=== PATIENT | female | born 1955 | race Caucasian/White ===

== ENCOUNTER 2016-05-01 09:48 | Inpatient (IN) | payer MEDICARE, MEDICAID ==
[~2016-05-01 09:48] MED LIST: BuPROPion 150 MG SR TAB PO SCH
--- NOTE | 2016-05-01 10:07 | EDPRACDOC ---
- General Information Information Source: Patient - History of Present Illness Onset: 3-4 DAYS HPI: PT REPORTS WORSENING SOBR, COUGH PROD OF CLEAR-YELLOW SPUTUM, WHEEZING, JOSEPH, SAW DR MENDEZ ON FRIDAY, WAS GIVEN A "SHOT" AND STARTED ON ZITHROMAX AND PREDNISONE, PT STATES NO IMPROVEMENT, USING NEBS AND OXYGEN AT HOME WITHOUT RELIEF. PT HAS HX OF COPD, IS ON CONTINUOUS OXYGEN, "TRYING TO QUIT" SMOKING. Shortness of Breath: Severe Relevant History: Reports: COPD, Heart Failure (CHF) Cough: Reports: Productive, Clear, Yellow Rhinorrhea: Reports: Clear Ear Symptoms: Reports: None SOB Worsens with: Reports: Exertion SOB Improves with: Reports: Nothing Recently treated infections:: Reports: URI Associated Signs and symptoms: Reports: Cough, Nasal Symptoms. Denies: Earache , Fever, Headache, Sore Throat, Nausea, Vomiting, Diarrhea, Myalgia, Rash, Pain with head movement, AMS <Troy Arrieta - Last Filed: 05/01/16 11:31> - History of Present Illness HPI: MD NOTE SEEN AND EXAMINED; FAILED OUTPT TREATMENT; HERE WITH SHOB AND WHEEZING; LABS AND XRAY REVIEWED. ABX STARTED; SOME IMPROVEMENT AFTER NEB; PT DOES WEAR OXYGEN AT HOME <Bryan Beverly - Last Filed: 05/01/16 11:51> - General Information Chief Complaint: Dyspnea/Resp distress Stated Complaint: RESP DISTRESS Time Seen by Provider: 05/01/16 10:00 Home Medications: Home Medications Albuterol Sulfate [Ventolin Hfa] 1 - 2 puff INH Q4H PRN 10/27/13 Roflumilast [Daliresp] 500 mcg PO DAILY 10/27/13 Ropinirole HCl [Requip] 1 mg PO HS 03/16/14 Lisinopril 5 mg PO DAILY #90 tablet 03/21/14 Levothyroxine [Synthroid, Levoxyl] 75 mcg PO DAILY 05/17/15 Tramadol HCl [Ultram] 50 mg PO Q8H PRN 09/24/15 Alprazolam [Xanax] 0.5 mg PO TID 11/21/15 Atorvastatin Calcium [Lipitor] 40 mg PO HS #30 tablet 02/18/16 Carvedilol [Coreg] 3.125 mg PO BID #60 tablet 11/20/16 Furosemide [Lasix] 20 mg PO DAILY 04/05/16 Guaifenesin [Mucinex] 600 mg PO Q12H PRN 04/05/16 Montelukast Sodium [Singulair] 10 mg PO DAILY 04/05/16 Aspirin (Enteric Coated) [Ecotrin] 81 mg PO DAILY 05/01/16 Azithromycin 500 mg PO .DAILY X 10D 05/01/16 Budesonide/Formoterol Fumarate [Symbicort 160-4.5 Mcg Inhaler] 2 puff INH BID Omeprazole 20 mg PO DAILY 05/01/16 Prednisone [Deltasone, Orasone] 10 mg PO .SEE COMMENTS 05/01/16 Allergies/Adverse Reactions: Allergies Allergy/AdvReac Type Severity Reaction Status Date / Time levofloxacin [From Levaquin] Allergy Difficulty Verified 04/05/16 12:43 Breathing - Treatment Prior to ED Arrival Reported Medications/Treatment DENTAL DETAIL REPRESENTATIVE Meds/Treatments Given O2 via Cannula Medications DENTAL DETAIL REPRESENTATIVE (Medication/ duoneb enroute Dose/Time) EMS Treatment ALS IV Yes <Troy Arrieta - Last Filed: 05/01/16 11:31> - Treatment Prior to ED Arrival Reported Medications/Treatment DENTAL DETAIL REPRESENTATIVE Meds/Treatments Given O2 via Cannula Medications DENTAL DETAIL REPRESENTATIVE (Medication/ duoneb enroute Dose/Time) EMS Treatment ALS IV Yes <Bryan Beverly - Last Filed: 05/01/16 11:51> ED Past Medical History - History Reviewed Yes Nurses notes reviewed and agree except as marked - Patient Medical History Neurological History: Denies: Cerebrovascular Accident, Seizures, Dementia, Guillian-Eugene Syndrome, Parkinson's, Multiple Sclerosis Cardiac History: Reports: Hypertension, Congestive Heart Failure. Denies: Heart Attack, Cardiac Catheterization, CABG, Pacemaker, Syncope Respiratory History: Reports: Asthma, COPD, Pneumonia (01/2016), Emphysema. Denies: Pulmonary Embolism GI/ History: Reports: Urinary Tract Infection, Gastroesophageal Reflux Musculoskeletal History: Reports: Arthritis Psychological History: Reports: Depression (anxiety), Anxiety. Denies: Bipolar Disorder, Substance Use Disorder Systemic History: Reports: Hyperthyroidism, Hypothyroidism. Denies: Anemia Surgical History: Reports: Cholecystectomy, Other (Colon polyps removed.). Denies: CABG, Angioplasty, Cardiac Catheterization - Family Medical History Reports: Hypertension, Diabetes, Cancer, Cardiac Disorders. Denies: Stroke - Social Medical History Smoking Status: Heavy tobacco smoker (5 or more cigarettes/day or daily pipe/ cigar) Social History: Denies: Substance Use Disorder ETOH: None Substance Abuse: None <Shreyas Arrietason - Last Filed: 05/01/16 11:31> EDM Review of Systems - Review of Systems Constitutional: Weakness. negative: Chills, Fever Eyes: negative: Blurred Vision, Double Vision Ears: negative: Drainage Throat: negative: Pain Nose: Congestion. negative: Discharge Respiratory: Cough, Shortness of Breath, Wheezing Cardiovascular: Chest Pain. negative: Palpitations Gastrointestinal: negative: Diarrhea, Nausea, Pain, Vomiting Genitourinary: negative: Dysuria, Frequency Neurological: negative: Dizziness, Headache, Numbness, Weakness Musculoskeletal: No Symptoms Reported Integumentary: No Symptoms Reported <Shreyas Arrietason - Last Filed: 05/01/16 11:31> - Physical Exam Constitutional: Alert (Awake), No apparent distress Oriented to: Time, Person, Place Last recorded Vital Signs: Last Vital Signs Temp 98.3 F 05/01/16 09:58 Pulse 103 05/01/16 09:58 Resp 22 05/01/16 09:58 BP 161/72 05/01/16 09:58 Pulse Ox 93 05/01/16 09:58 Oxygen Pulse Oxygen Saturation 93 O2 Device Nasal Cannula Oxygen Flow Rate 2 Fraction of Inspired Oxygen ( FIO2) - HEENT Head: Normal ( normocephalic) Eye Exam: Normal (PERRL, EOMI, Sclera white) Oropharynx: Normal (Pharynx:Moist without exudate,Gums-no swelling) Tympanic Membrane: Normal ENT EAC: Normal TMJ: Normal Nose: No Symptoms Reported (septum midline) Neck: Normal (FROM, trachea at midline) - Respiratory/Cardiovascular Respiratory: Accessory Muscle Use, Diminished, Wheezes Cardiovascular: Normal (RRR without murmur, gallop or rub) - GI Auscultation: Normal (NABS) Palpation: Normal (Soft,No rebound or guarding, non distended) Tenderness: Non tender Pichardo's Sign: Negative - Musculoskeletal Back: Normal (Non-Tender) Extremities: Normal (Normal tone, Pulses 2+ No cyanosis or edema, FROM) - Integumentary Skin: Normal, Warm, Dry Lymphatics: Normal (no adenopathy) - Neurologic Memory Impaired: Normal Motor Function: Normal (Normal tone, Pulses 2+ No cyanosis or edema, FROM) Cranial Nerve: Normal (CN II-X11 intact sensation, strength 5/5) Cerebellar: Normal Mood Description: Normal Perception: Normal <Troy Arrieta - Last Filed: 05/01/16 11:31> - Physical Exam Last recorded Vital Signs: Last Vital Signs Temp 97.7 F 05/01/16 11:43 Pulse 98 05/01/16 11:43 Resp 22 05/01/16 11:43 BP 111/59 L 05/01/16 11:43 Pulse Ox 93 05/01/16 11:43 Oxygen Pulse Oxygen Saturation 93 O2 Device Nasal Cannula Oxygen Flow Rate 2 Fraction of Inspired Oxygen ( 2 FIO2) <Bryan Beverly - Last Filed: 05/01/16 11:51> ED SOB MDM - Differential Diagnosis Differential Diagnosis: Asthma, Heart Failure, Pnuemonia, Pneumothorax - Re-evaluation Re-evaluation 1 Re-evaluation Time: 11:32 (STABLE) - Results Result Diagrams: 05/01/16 10:10 05/01/16 10:10 Results: 05/01/16 11:32 Laboratory Results - last 24 hr 05/01/16 05/01/16 05/01/16 10:10 10:10 10:10 WBC 11.2 H RBC 4.58 Hgb 13.1 Hct 40.5 MCV 88 MCH 28.7 MCHC 32.5 L RDW 15.7 H Plt Count 266 MPV 6.4 L Neut % (Auto) 66.4 Lymph % (Auto) 20.1 [place] % (Auto) 12.8 H Eos % (Auto) 0.3 Baso % (Auto) 0.4 Absolute Neuts (auto) 7.39 Absolute Lymphs (auto) 2.24 PT INR APTT Puncture Site pH pCO2 pO2 HCO3 Total CO2 Base Excess FiO2 % Specimen Drawn By Sodium 136 L Potassium 3.6 Chloride 93 L Carbon Dioxide 35 H Anion Gap 12 BUN 18 H Creatinine 0.50 L Estimated GFR (MDRD) > 60 Glucose 84 Calculated Osmolality 263 L Lactic Acid 1.6 Calcium 8.8 Corrected Calcium 8.9 Total Bilirubin 0.4 AST 25 ALT 29 Alkaline Phosphatase 68 Troponin I < 0.01 [id number]-P-[id number] Pept 125 Total Protein 6.8 Albumin 3.9 05/01/16 05/01/16 10:10 10:25 WBC RBC Hgb Hct MCV MCH MCHC RDW Plt Count MPV Neut % (Auto) Lymph % (Auto) [place] % (Auto) Eos % (Auto) Baso % (Auto) Absolute Neuts (auto) Absolute Lymphs (auto) PT 11.6 H INR 1.1 APTT 27.2 Puncture Site Right brachial pH 7.390 pCO2 66.0 H pO2 59.0 L HCO3 40.0 H Total CO2 42.0 H Base Excess 12.1 H FiO2 % 2lpm nc Specimen Drawn By [place] Sodium Potassium Chloride Carbon Dioxide Anion Gap BUN Creatinine Estimated GFR (MDRD) Glucose Calculated Osmolality Lactic Acid Calcium Corrected Calcium Total Bilirubin AST ALT Alkaline Phosphatase Troponin I [id number]-Xahtxiewdmq Pept Total Protein Albumin - EKG EKG #1 EKG Time: 09:59 -: Yes EKG interpreted by me Rate: bpm: 100 [place]: Normal Rhythm: NSR Block: None Hypertrophy: None ST: Nonsp Comparison: 02/10/16 (NO CHANGE) - Diagnostic Imaging CXR Image interpreted by: Radiologist Diagnostic Imaging Comments: CHEST 2 VIEW COMPARISON: 02/13/2016 FINDINGS: Cardiomediastinal silhouette is stable. Hyperinflation and mild interstitial prominence again noted. There is streaky left basilar atelectasis or early infiltrate. No pulmonary edema. Thoracic spine osteopenia. Mild degenerative changes mid thoracic spine. Stable compression deformities mid thoracic spine. IMPRESSION: Again noted hyperinflation and chronic mild interstitial prominence. Streaky left basilar atelectasis or early infiltrate. No pulmonary edema. Stable compression deformities and mild degenerative changes mid thoracic spine. - Additional Information Additional Information: DISCUSSED WITH DR BEVERLY, HE WILL DISCUSS WITH THE HOSPITALIST <Troy Arrieta - Last Filed: 05/01/16 11:31> - Results Result Diagrams: 05/01/16 10:10 05/01/16 10:10 Results: WBC 11.2 xk/uL (3.8-10.8) H 05/01/16 10:10 RBC 4.58 xM/uL (4.20-5.40) 05/01/16 10:10 Hgb 13.1 g/dL (12.0-16.0) 05/01/16 10:10 Hct 40.5 % (36-47) 05/01/16 10:10 MCV 88 fL (81-99) 05/01/16 10:10 MCH 28.7 pg (27-32) 05/01/16 10:10 MCHC 32.5 g/dl (33-36) L 05/01/16 10:10 RDW 15.7 % (11.5-14.5) H 05/01/16 10:10 Plt Count 266 xk/uL (130-400) 05/01/16 10:10 MPV 6.4 fL (7.4-10.4) L 05/01/16 10:10 Neut % (Auto) 66.4 % (45-76) 05/01/16 10:10 Lymph % (Auto) 20.1 % (17-44) 05/01/16 10:10 [place] % (Auto) 12.8 % (3-10) H 05/01/16 10:10 Eos % (Auto) 0.3 % (0-5) 05/01/16 10:10 Baso % (Auto) 0.4 % (0-2) 05/01/16 10:10 Absolute Neuts (auto) 7.39 xk/uL (1.7-8.2) 05/01/16 10:10 Absolute Lymphs (auto) 2.24 xk/uL (0.65-4.75) 05/01/16 10:10 PT 11.6 SEC (9.2-11.2) H 05/01/16 10:10 INR 1.1 05/01/16 10:10 APTT 27.2 SEC (22-35) 05/01/16 10:10 Puncture Site Right brachial 05/01/16 10:25 pH 7.390 pH UNITS (7.35-7.45) 05/01/16 10:25 pCO2 66.0 mmHg (35-45) H 05/01/16 10:25 pO2 59.0 mmHg (80-100) L 05/01/16 10:25 HCO3 40.0 MMOL/L (22-26) H 05/01/16 10:25 Total CO2 42.0 MMOL/L (23-27) H 05/01/16 10:25 Base Excess 12.1 (+/- 2) H 05/01/16 10:25 FiO2 % 2lpm nc 05/01/16 10:25 Specimen Drawn By [place] 05/01/16 10:25 Sodium 136 mEq/L (137-146) L 05/01/16 10:10 Potassium 3.6 mEq/L (3.5-5.1) 05/01/16 10:10 Chloride 93 mEq/L (98-107) L 05/01/16 10:10 Carbon Dioxide 35 mMOL/L (22-33) H 05/01/16 10:10 Anion Gap 12 mEq/L (8-16) 05/01/16 10:10 BUN 18 MG/DL (7-17) H 05/01/16 10:10 Creatinine 0.50 MG/DL (0.52-1.04) L 05/01/16 10:10 Estimated GFR (MDRD) > 60 mL/min (>=60) 05/01/16 10:10 Glucose 84 mg/dL (70-99) 05/01/16 10:10 Calculated Osmolality 263 MOs/Kg (270-290) L 05/01/16 10:10 Lactic Acid 1.6 mEq/L (0.7-2.1) 05/01/16 10:10 Calcium 8.8 MG/DL (8.4-10.2) 05/01/16 10:10 Corrected Calcium 8.9 MG/DL (8.4-10.2) 05/01/16 10:10 Total Bilirubin 0.4 MG/DL (0.2-1.3) 05/01/16 10:10 AST 25 IU/L (14-36) 05/01/16 10:10 ALT 29 IU/L (9-52) 05/01/16 10:10 Alkaline Phosphatase 68 IU/L (38-126) 05/01/16 10:10 Troponin I < 0.01 ng/mL (<.04) 05/01/16 10:10 Qjb-Q-Xsufkjtkpya Pept 125 pg/mL (0-900) 05/01/16 10:10 Total Protein 6.8 G/DL (6.3-8.2) 05/01/16 10:10 Albumin 3.9 G/DL (3.5-5.0) 05/01/16 10:10 Urine Color Pale yellow 05/01/16 11:10 Urine Clarity Clear 05/01/16 11:10 Urine pH 7.0 (5.0-8.0) 05/01/16 11:10 Ur Specific [place] 1.005 (1.003-1.035) 05/01/16 11:10 Urine Protein Neg (NEG/TRACE) 05/01/16 11:10 Urine Glucose (UA) Neg (NEGATIVE) 05/01/16 11:10 Urine Ketones Neg (NEGATIVE) 05/01/16 11:10 Urine Occult Blood Neg (NEG/TRACE) 05/01/16 11:10 Urine Nitrite Neg (NEGATIVE) 05/01/16 11:10 Urine Bilirubin Neg (NEGATIVE) 05/01/16 11:10 Urine Urobilinogen <2.0 MG/DL (0-1) 05/01/16 11:10 Ur Leukocyte Esterase Neg (NEGATIVE) 05/01/16 11:10 Urine RBC 0-2 (0-5) 05/01/16 11:10 Urine WBC 0-2 (0-5) 05/01/16 11:10 Ur Epithelial Cells Occ 05/01/16 11:10 Urine Mucus Occ (NEG/OCC) 05/01/16 11:10 Lab Results 05/01/16 05/01/16 05/01/16 11:10 10:25 10:10 WBC RBC Hgb Hct MCV MCH MCHC RDW Plt Count MPV Neut % (Auto) Lymph % (Auto) [place] % (Auto) Eos % (Auto) Baso % (Auto) Absolute Neuts (auto) Absolute Lymphs (auto) PT 11.6 H INR 1.1 APTT 27.2 Puncture Site Right brachial pH 7.390 pCO2 66.0 H pO2 59.0 L HCO3 40.0 H Total CO2 42.0 H Base Excess 12.1 H FiO2 % 2lpm nc Specimen Drawn By [place] Sodium Potassium Chloride Carbon Dioxide Anion Gap BUN Creatinine Estimated GFR (MDRD) Glucose Calculated Osmolality Lactic Acid Calcium Corrected Calcium Total Bilirubin AST ALT Alkaline Phosphatase Troponin I Jul-L-Ohjjifudopq Pept Total Protein Albumin Urine Color Pale yellow Urine Clarity Clear Urine pH 7.0 Ur Specific [place] 1.005 Urine Protein Neg Urine Glucose (UA) Neg Urine Ketones Neg Urine Occult Blood Neg Urine Nitrite Neg Urine Bilirubin Neg Urine Urobilinogen <2.0 Ur Leukocyte Esterase Neg Urine RBC 0-2 Urine WBC 0-2 Ur Epithelial Cells Occ Urine Mucus Occ 05/01/16 05/01/16 05/01/16 10:10 10:10 10:10 WBC 11.2 H RBC 4.58 Hgb 13.1 Hct 40.5 MCV 88 MCH 28.7 MCHC 32.5 L RDW 15.7 H Plt Count 266 MPV 6.4 L Neut % (Auto) 66.4 Lymph % (Auto) 20.1 [place] % (Auto) 12.8 H Eos % (Auto) 0.3 Baso % (Auto) 0.4 Absolute Neuts (auto) 7.39 Absolute Lymphs (auto) 2.24 PT INR APTT Puncture Site pH pCO2 pO2 HCO3 Total CO2 Base Excess FiO2 % Specimen Drawn By Sodium 136 L Potassium 3.6 Chloride 93 L Carbon Dioxide 35 H Anion Gap 12 BUN 18 H Creatinine 0.50 L Estimated GFR (MDRD) > 60 Glucose 84 Calculated Osmolality 263 L Lactic Acid 1.6 Calcium 8.8 Corrected Calcium 8.9 Total Bilirubin 0.4 AST 25 ALT 29 Alkaline Phosphatase 68 Troponin I < 0.01 Rsq-A-Heecsyrwhnx Pept 125 Total Protein 6.8 Albumin 3.9 Urine Color Urine Clarity Urine pH Ur Specific [place] Urine Protein Urine Glucose (UA) Urine Ketones Urine Occult Blood Urine Nitrite Urine Bilirubin Urine Urobilinogen Ur Leukocyte Esterase Urine RBC Urine WBC Ur Epithelial Cells Urine Mucus <Bryan Beverly - Last Filed: 05/01/16 11:51> - Departure Disposition: Admit IP To This Hospital Decision to Admit Time: 11:38 Decision to admit date: 05/01/16 Decision to admit: from ED - Physician Consulted Hospitalist Time Called: 11:38 Provider Called: Stewart Jovel Time Seat Covers Trimmer Returned Call: 11:38 (WILL SEE) <Troy Arrieta - Last Filed: 05/01/16 11:31> <Bryan Beverly - Last Filed: 05/01/16 11:51> - Departure Condition: Stable Final Diagnosis: Community acquired pneumonia, Failure of outpatient treatment, Hypoxia Referrals: Canelo Stone Jr, DO [Primary Care Provider] - One Week Prescriptions: No Action Roflumilast [Daliresp] 500 mcg PO DAILY Albuterol Sulfate [Ventolin Hfa] 1 - 2 puff INH Q4H PRN PRN Reason: Shortness Of Breath Ropinirole HCl [Requip] 1 mg PO HS Lisinopril 5 mg PO DAILY #90 tablet Levothyroxine [Synthroid, Levoxyl] 75 mcg PO DAILY Tramadol HCl [Ultram] 50 mg PO Q8H PRN PRN Reason: Pain Alprazolam [Xanax] 0.5 mg PO TID Atorvastatin Calcium [Lipitor] 40 mg PO HS #30 tablet Carvedilol [Coreg] 3.125 mg PO BID #60 tablet Montelukast Sodium [Singulair] 10 mg PO DAILY Guaifenesin [Mucinex] 600 mg PO Q12H PRN PRN Reason: Congestion Furosemide [Lasix] 20 mg PO DAILY Budesonide/Formoterol Fumarate [Symbicort 160-4.5 Mcg Inhaler] 2 puff INH BID Azithromycin 500 mg PO .DAILY X 10D Aspirin (Enteric Coated) [Ecotrin] 81 mg PO DAILY Omeprazole 20 mg PO DAILY Prednisone [Deltasone, Orasone] 10 mg PO .SEE COMMENTS
[2016-05-01] MEDS ORDERED: METHYLPREDNISOLONE 125 MG/2 ML VIAL IV ONE (10:08)
[2016-05-01] MEDS ORDERED: Albuterol/Ipratropium Neb 3 ML NEB NEB ONE (10:09)
[2016-05-01 10:30] LABS: AUTOMATED BASOPHIL 0.4 % (0-2); AUTOMATED EOSINOPHIL 0.3 % (0-5); AUTOMATED LYMPH 20.1 % (17-44); AUTOMATED MONOCYTE 12.8 % (3-10); AUTOMATED NEUTROPHIL 66.4 % (45-76); MPV 6.4 fL (7.4-10.4)
[2016-05-01 10:31] LABS: ALLEN'S TEST PASS; BEb 12.1 (+/- 2)
[2016-05-01 10:32] LABS: ABG Draw Site Right Brachial
[2016-05-01 10:42] LABS: PARTIAL THROMB. TIME 27.2 SEC (22-35); PT-INR 1.1
[2016-05-01 10:52] LABS: BLOOD UREA NITROGEN 18 MG/DL (7-17); CALC CORRECTED 8.9 MG/DL (8.4-10.2); CALCIUM 8.8 MG/DL (8.4-10.2); CALCULATED OSMOLALITY 263 MOs/Kg (270-290); CHLORIDE 93 mEq/L (98-107); GLUCOSE 84 mg/dL (70-99); SODIUM LEVEL 136 mEq/L (137-146); TOTAL PROTEIN 6.8 G/DL (6.3-8.2)
--- NOTE | 2016-05-01 11:18 | DIRPT ---
CLINICAL DATA: Shortness of breath, wheezing, productive cough EXAM: CHEST 2 VIEW COMPARISON: 02/13/2016 FINDINGS: Cardiomediastinal silhouette is stable. Hyperinflation and mild interstitial prominence again noted. There is streaky left basilar atelectasis or early infiltrate. No pulmonary edema. Thoracic spine osteopenia. Mild degenerative changes mid thoracic spine. Stable compression deformities mid thoracic spine. IMPRESSION: Again noted hyperinflation and chronic mild interstitial prominence. Streaky left basilar atelectasis or early infiltrate. No pulmonary edema. Stable compression deformities and mild degenerative changes mid thoracic spine. Electronically Signed By: Shawn Charles M.D. On: 05/01/2016 11:15
[2016-05-01 11:34] LABS: LEUKOCYTES/URINE NEG (NEGATIVE); NITRITE/URINE NEG (NEGATIVE); RBC/URINE 0-2 (0-5); URINE OCCULT BLOOD NEG (NEG/TRACE); WBC/URINE 0-2 (0-5)
[2016-05-01] MEDS ORDERED: PIPERACILLIN AND TAZOBACTAM 3.375 GM in D5W 100 ML IV ONE (11:39)
[2016-05-01] MEDS ORDERED: CEFEPIME HYDROCHLORIDE 1 GM in D5W 100 ML IV ONE (12:00)
[2016-05-01] MEDS ORDERED: ACETAMINOPHEN 325 MG SUPP PR PRN (12:10)
[2016-05-01] MEDS ORDERED: BENZONATATE 100 MG PERLES PO PRN (12:10)
[2016-05-01] MEDS ORDERED: ACETAMINOPHEN 325 MG/TAB TABLET PO PRN (12:10)
[2016-05-01] MEDS ORDERED: BISACODYL 10 MG SUPP PR PRN (12:10)
[2016-05-01] MEDS ORDERED: METOCLOPRAMIDE 10 MG/2 ML VIAL IV PRN (12:10)
[2016-05-01] MEDS ORDERED: OXYCODONE HCL 5 MG TABLET PO PRN (12:10)
[2016-05-01] MEDS ORDERED: TUSSIONEX 5 ML ORAL SYRINGE PO PRN (12:10)
[2016-05-01] MEDS ORDERED: PROMETHAZINE 25 MG/ML VIAL IV PRN (12:10)
[2016-05-01] MEDS ORDERED: SENNA CONCENTRATE TAB PO PRN (12:10)
[2016-05-01] MEDS ORDERED: ZOLPIDEM TARTRATE 5 MG TAB PO PRN (12:10)
[2016-05-01] MEDS ORDERED: Aluminum;Magnesium;Simethicone 30 ML UDC PO PRN (12:10)
--- NOTE | 2016-05-01 12:10 | HISTPHYS ---
- Chief Complaint cough sob - History of Present Illness Patient very pleasant 61-year-old white female patient of Dr. Allison who comes in the emergency room today complaining of cough productive of clear to yellowish sputum market increased shortness breath and failing outpatient antibiotics. Apparently she was seen by Dr. Motley 2 days ago given an injection as well as p.o. Zithromax and prednisone. She indicated that she has had no improvement in her symptoms and actually is getting much more short of breath. Her chest feels very tight and states that normally her temperature is 96.4 but has been running a fever up to 99 F. she also complains of nausea vomiting over the past 3-4 days but is not aware of having choked on her vomitus. She also states that she has quit smoking for the large part approximately 2 months ago using nicotine patch. She indicated that Chantix makes her walk in her sleep. - Medical History Cardiac History: Reports: Hypertension, Congestive Heart Failure. Denies: Heart Attack, Cardiac Catheterization, CABG, Pacemaker, Syncope Respiratory History: Reports: Asthma, COPD, Pneumonia (01/2016), Emphysema. Denies: Pulmonary Embolism GI/ History: Reports: Urinary Tract Infection, Gastroesophageal Reflux Musculoskeletal History: Reports: Arthritis Systemic History: Reports: Hyperthyroidism, Hypothyroidism. Denies: Anemia Neurological History: Denies: Cerebrovascular Accident, Seizures, Dementia, Guillian-Katy Syndrome, Parkinson's, Multiple Sclerosis Psychological History: Reports: Depression (anxiety), Anxiety. Denies: Bipolar Disorder, Substance Use Disorder - Surgical History Reports: Cholecystectomy, Other (Colon polyps removed.). Denies: CABG, Angioplasty, Cardiac Catheterization - Medictions/Allergies Allergies levofloxacin [From Levaquin] Allergy (Verified 04/05/16 12:43) Difficulty Breathing Current Medication List: Reviewed Home Medications Albuterol Sulfate [Ventolin Hfa] 1 - 2 puff INH Q4H PRN 10/27/13 Roflumilast [Daliresp] 500 mcg PO DAILY 10/27/13 Ropinirole HCl [Requip] 1 mg PO HS 03/16/14 Lisinopril 5 mg PO DAILY #90 tablet 03/21/14 Levothyroxine [Synthroid, Levoxyl] 75 mcg PO DAILY 05/17/15 Tramadol HCl [Ultram] 50 mg PO Q8H PRN 09/24/15 Alprazolam [Xanax] 0.5 mg PO TID 11/21/15 Atorvastatin Calcium [Lipitor] 40 mg PO HS #30 tablet 02/18/16 Carvedilol [Coreg] 3.125 mg PO BID #60 tablet 02/18/16 Furosemide [Lasix] 20 mg PO DAILY 04/05/16 Guaifenesin [Mucinex] 600 mg PO Q12H PRN 04/05/16 Montelukast Sodium [Singulair] 10 mg PO DAILY 04/05/16 Aspirin (Enteric Coated) [Ecotrin] 81 mg PO DAILY 05/01/16 Azithromycin 500 mg PO .DAILY X 10D 05/01/16 Budesonide/Formoterol Fumarate [Symbicort 160-4.5 Mcg Inhaler] 2 puff INH BID Omeprazole 20 mg PO DAILY 05/01/16 Prednisone [Deltasone, Orasone] 10 mg PO .SEE COMMENTS 05/01/16 - Family History Reports: Hypertension, Diabetes, Cancer, Cardiac Disorders. Denies: Stroke - Social History Travel Outside of [place] in the Last 3 Months?: No Lives: Alone (Has a [employer] that comes into her home 8:30-4:30 5 days a week) Smoking Status: Heavy tobacco smoker (5 or more cigarettes/day or daily pipe/ cigar) Social History: Denies: Alcohol Use, Substance Use Disorder - Review of Systems Constitutional: Chills, Fever Eyes: No Symptoms Reported (No blurry vision, visual changes, eye pain, or eye redness.) Ears: No Symptoms Reported (No ear pain or discharge) Nose: No Symptoms Reported (No nasal discharge/congestion or bleeding) Mouth: No Symptoms Reported (No oropharyngeal lesions or erythema) Respiratory: Cough, Shortness of Breath (Extremely short of breath), Wheezing, Dyspnea Cardiovascular: Chest Pain (Chest tightness from her breast to her abdomen) Gastrointestinal: No Symptoms Reported (No abdominal pain, nausea, vomiting, diarrhea, constipation, or bloody stool.) Genitourinary: No Symptoms Reported (No dysuria or hematuria.) Neurological: No Symptoms Reported (No headache, dizziness, seizures, or focal weakness.) Musculoskeletal:: No Symptoms Reported Integumentary: No Symptoms Reported (no rashes or lesions) Allergic/Immunologic: No Symptoms Reported (no rashes or lesions) Hematologic: No Symptoms Reported (No chronic anemia, bleeding, or easy bruising.), Other (Lymphatics- no lymph node swelling or pain.) Endocrine: Hypothyroidism Psychiatric: No Symptoms Reported (Fully oriented, with normal and appropriate affect.) - Physical Exam Vital Signs: Initial Vitals Temperature 98.3 F 05/01/16 09:58 Pulse Rate 103 05/01/16 09:58 Respiratory Rate 22 05/01/16 09:58 Blood Pressure 161/72 05/01/16 09:58 Pulse Oxygen Saturation 93 05/01/16 09:58 Constitutional: Alert, Distress, Restless Oriented to: Time, Person, Place - HEENT Head: Normal (normocephalic, atraumatic.), Other (No cervical lymphadenopathy. No supraclavicular lymphadenopathy. Neck: No palpable mass, supple , trachea midline.) Eye: Normal (pupils equal, reactive to light, and round; EOMI, Sclera white) Oropharynx: Normal (Pharynx: Moist without exudate,Gums-no swelling, No oropharyngeal lesions or erythema, Mucous membranes are dry.) ENT EAC: Normal (No oropharyngeal lesions or erythema. Mucous membranes are dry. ) TMJ: Normal Nose: No Symptoms Reported (septum midline, Nares patent, without discharge or bleeding.) Respiratory: Accessory Muscle Use, Diminished, Rhonchi, Stridor, Tachypnea, Wheezes Cardiovascular: Tachycardia. negative: Irregular, Diastolic murmur, Gallop/S3, Gallop/S4 - GI Auscultation: Normal (normal active sounds) Palpation: Normal (Soft,non distended,nontender. No hepatosplenomegaly.) Tenderness: Non tender (No rebound or guarding) Pichardo's Sign: Negative - Musculoskeletal Back: Normal (Non-Tender) Extremities: Edema (Trace). negative: Clubbing, Cyanosis Spine: non-tender - Integumentary Skin: Normal (Clean, dry, and intact. No rashes. No lesions.) Lymphatics: Normal (No cervical lymphadenopathy. No supraclavicular lymphadenopathy.) - Neurologic Memory Impaired: Normal Motor Function: Normal (Motor 5/5 throughout.Normal tone, Pulses 2+ No cyanosis or edema, FROM) Cranial Nerve: Normal (CN II-XII intact sensation, strength 5/5) Cerebellar: Normal. negative: Ataxia, Past-Pointing, Tremor Mood Description: Anxious Thought: Coherent Perception: Normal (Normal and appropriate affect.) - Focused CV Perfusion Exam Vital Signs: Last Vital Signs Temp 97.7 F 05/01/16 11:43 Pulse 98 05/01/16 11:43 Resp 22 05/01/16 11:43 BP 111/59 L 05/01/16 11:43 Pulse Ox 93 05/01/16 11:43 - Lab Results 05/01/16 10:10 05/01/16 10:10 Laboratory Results - last 24 hr 05/01/16 05/01/16 05/01/16 10:10 10:10 10:10 WBC 11.2 H RBC 4.58 Hgb 13.1 Hct 40.5 MCV 88 MCH 28.7 MCHC 32.5 L RDW 15.7 H Plt Count 266 MPV 6.4 L Neut % (Auto) 66.4 Lymph % (Auto) 20.1 [place] % (Auto) 12.8 H Eos % (Auto) 0.3 Baso % (Auto) 0.4 Absolute Neuts (auto) 7.39 Absolute Lymphs (auto) 2.24 PT INR APTT Puncture Site pH pCO2 pO2 HCO3 Total CO2 Base Excess FiO2 % Specimen Drawn By Sodium 136 L Potassium 3.6 Chloride 93 L Carbon Dioxide 35 H Anion Gap 12 BUN 18 H Creatinine 0.50 L Estimated GFR (MDRD) > 60 Glucose 84 Calculated Osmolality 263 L Lactic Acid 1.6 Calcium 8.8 Corrected Calcium 8.9 Total Bilirubin 0.4 AST 25 ALT 29 Alkaline Phosphatase 68 Troponin I < 0.01 Nek-Y-Buyilyzirgf Pept 125 Total Protein 6.8 Albumin 3.9 Urine Color Urine Clarity Urine pH Ur Specific [place] Urine Protein Urine Glucose (UA) Urine Ketones Urine Occult Blood Urine Nitrite Urine Bilirubin Urine Urobilinogen Ur Leukocyte Esterase Urine RBC Urine WBC Ur Epithelial Cells Urine Mucus 05/01/16 05/01/16 05/01/16 10:10 10:25 11:10 WBC RBC Hgb Hct MCV MCH MCHC RDW Plt Count MPV Neut % (Auto) Lymph % (Auto) [place] % (Auto) Eos % (Auto) Baso % (Auto) Absolute Neuts (auto) Absolute Lymphs (auto) PT 11.6 H INR 1.1 APTT 27.2 Puncture Site Right brachial pH 7.390 pCO2 66.0 H pO2 59.0 L HCO3 40.0 H Total CO2 42.0 H Base Excess 12.1 H FiO2 % 2lpm nc Specimen Drawn By [place] Sodium Potassium Chloride Carbon Dioxide Anion Gap BUN Creatinine Estimated GFR (MDRD) Glucose Calculated Osmolality Lactic Acid Calcium Corrected Calcium Total Bilirubin AST ALT Alkaline Phosphatase Troponin I Bjq-H-Oiqchuzfegk Pept Total Protein Albumin Urine Color Pale yellow Urine Clarity Clear Urine pH 7.0 Ur Specific [place] 1.005 Urine Protein Neg Urine Glucose (UA) Neg Urine Ketones Neg Urine Occult Blood Neg Urine Nitrite Neg Urine Bilirubin Neg Urine Urobilinogen <2.0 Ur Leukocyte Esterase Neg Urine RBC 0-2 Urine WBC 0-2 Ur Epithelial Cells Occ Urine Mucus Occ - Diagnostic Findings Chest x-ray showed left basilar infiltrate evidence of hyperinflation consistent with emphysema. - Assessment (1) Acute respiratory failure J96.00 - ACUTE RESPIRATORY FAILURE, UNSP W HYPOXIA OR HYPERCAPNIA Acute Present on Admission: Yes Qualifiers: Respiratory failure complication: hypoxia and hypercapnia Qualified Code(s) : J96.01 - Acute respiratory failure with hypoxia; J96.02 - Acute respiratory failure with hypercapnia Significant hypercapnia and hypoxia associated with her pneumonia and COPD exacerbation warrant the use supplemental O2 and may need intubation should she continued to deteriorate. Will place her in a closely monitored setting. (2) COPD exacerbation J44.1 - CHRONIC OBSTRUCTIVE PULMONARY DISEASE W (ACUTE) EXACERBATION Acute Present on Admission: Yes Nebulizers IV antibiotics and steroids are ordered for her acute COPD exacerbation and pneumonia. (3) Community acquired pneumonia J18.9 - PNEUMONIA, UNSPECIFIED ORGANISM Acute Present on Admission: Yes Zithromax Rocephin and probiotics ordered. (4) Hyponatremia E87.1 - HYPO-OSMOLALITY AND HYPONATREMIA Acute Present on Admission: Yes Stable (5) Hypothyroidism E03.9 - HYPOTHYROIDISM, UNSPECIFIED Chronic Present on Admission: Yes Qualifiers: Hypothyroidism type: acquired Qualified Code(s): E03.9 - Hypothyroidism, unspecified Continue Synthroid (6) Tobacco abuse Z72.0 - TOBACCO USE Chronic Present on Admission: Yes Stressed smoking cessation at length. She states that she is trying to quit - Plan Due to the presence of and / or the risk of deterioration, my attendance to this patient required critical care time, including assessment/reassessment, documentation, ordering and interpreting ancillary studies, discussion with staff and consultants,patient and family, and excludes time spent on separately billable procedures. This individual is critically ill and in danger of dying. Case Care Discussed with: Patient, Nursing Staff, Resource Management Total Time: Critical care time spent 1 hour 23 minutes Critical Care: Yes Code: 291 (292)
[2016-05-01] MEDS ORDERED: ALBUTEROL 6.7 GM MDI INH PRN (12:17)
[2016-05-01] MEDS ORDERED: TRAMADOL HCL 50 MG TAB PO PRN (12:17)
[2016-05-01] MEDS ORDERED: GUAIFENESIN 600 MG LA TAB PO PRN ×2 (12:17→12:45)
[2016-05-01] MEDS ORDERED: ALBUTEROL 6.7 GM MDI INH SCH (12:46)
[2016-05-01] MEDS ORDERED: ALBUTEROL 0.083% 3 ML NEB NEB SCH (14:00)
[2016-05-01] MEDS: ALPRAZOLAM 0.5 MG TAB PO SCH ×2 (14:25→21:20)
[2016-05-01] MEDS: ACETAZOLAMIDE 250 MG TAB PO SCH (14:25)
[2016-05-01] MEDS: AZITHROMYCIN 500 MG in D5W 250 ML IV SCH (14:26)
[2016-05-01] MEDS: NICOTINE 21 MG PATCH TOP SCH (14:26)
[2016-05-01] MEDS: Albuterol/Ipratropium Neb 3 ML NEB NEB SCH ×2 (15:00→20:04)
[2016-05-01] MEDS ORDERED: Vaccine Screening Complete SCH (15:00)
[2016-05-01] MEDS: METHYLPREDNISOLONE 125 MG/2 ML VIAL IV SCH ×2 (15:47→21:20)
[2016-05-01] MEDS: CEFTRIAXONE 1 GM in D5W 100 ML IV SCH (16:58)
[2016-05-01] MEDS: ENOXAPARIN 40 MG/0.4 ML PFS SQ SCH (16:59)
[2016-05-01] MEDS ORDERED: GUAIFENESIN 400 MG PO PRN (19:39)
[2016-05-01] MEDS: BUDESONIDE 0.5 MG NEB NEB SCH (20:04)
[2016-05-01] MEDS ORDERED: Non-Formulary Medication ITEM (Budesonide/Formoterol Fumarate [Symbicort 160-4.5 Mcg Inh INH SCH (21:00)
[2016-05-01] MEDS: ROPINIROLE 1 MG TAB PO SCH (21:20)
[2016-05-01] MEDS: CARVEDILOL 3.125 MG TAB PO SCH (21:21)
[2016-05-01] MEDS: ATORVASTATIN 40 MG TAB PO SCH (21:21)
[2016-05-02] MEDS ORDERED: ACETAMINOPHEN 325 MG/TAB TABLET PO PRN (00:30)
[2016-05-02] MEDS ORDERED: TRAMADOL HCL 50 MG TAB PO PRN (00:31)
[2016-05-02] MEDS: Albuterol/Ipratropium Neb 3 ML NEB NEB SCH ×4 (01:15→19:12)
[2016-05-02] MEDS: PANTOPRAZOLE 40 MG TAB PO SCH (04:56)
[2016-05-02] MEDS: ALPRAZOLAM 0.5 MG TAB PO SCH ×3 (04:56→22:16)
[2016-05-02] MEDS: METHYLPREDNISOLONE 125 MG/2 ML VIAL IV SCH ×3 (04:56→17:03)
[2016-05-02 05:22] LABS: MPV 7.1 fL (7.4-10.4)
[2016-05-02 05:40] LABS: BLOOD UREA NITROGEN 19 MG/DL (7-17); CALCULATED OSMOLALITY 259 MOs/Kg (270-290); CHLORIDE 94 mEq/L (98-107); GLUCOSE 122 mg/dL (70-99); SODIUM LEVEL 133 mEq/L (137-146)
[2016-05-02] MEDS: BUDESONIDE 0.5 MG NEB NEB SCH ×2 (07:41→19:15)
--- NOTE | 2016-05-02 08:13 | GENMEDPROG ---
Chief Complaint: less sore under ribs, less sob Notes Reviewed: Yes: Events from last night noted and discussed with Clinical Staff Current Medication List: Reviewed Currently: Reports: Cough, Tobacco Use/Hx (off X 2months) DVT Prophylaxis: Yes - Physical Examination Vital Signs and I&O: Last Vital Signs Temp 98.1 F 05/02/16 07:18 Pulse 85 05/02/16 07:18 Resp 18 05/02/16 07:18 BP 129/61 05/02/16 07:18 Pulse Ox 94 05/02/16 07:35 Oxygen Pulse Oxygen Saturation 94 O2 Device Nasal Cannula Oxygen Flow Rate 2 Fraction of Inspired Oxygen ( FIO2) Intake & Output 04/29/16 04/30/16 05/01/16 05/02/16 23:59 23:59 23:59 23:59 Intake Total 546 Output Total 1450 400 Balance -904 -400 Patient's weight 50.802 kg 50.757 kg General: Alert, Oriented x3, No acute distress, Well appearing, Well nourished HEENT: Normal (Normocephalic, atraumatic;EOMI.Sclera white, Nares patent, without discharge or bleeding. No oropharyngeal lesions or erythema. Mucous membranes are dry.) Neck: Non-tender, Full range of motion, Normal Trachea alignment, Normal inspection (No cervical lymphadenopathy. No supraclavicular lymphadenopathy.), No Masses palpable, Supple Lymphatics: Normal (No cervical lymphadenopathy. No supraclavicular lymphadenopathy.) Respiratory: Accessory Muscle Use, Diminished, Rhonchi (w/cough), Stridor, Wheezes. negative: Tachypnea Cardiovascular: Regular rate and rhythm (No bradycardia or tachycardia), Normal S1, No Gallops,Rubs/Murmurs, Normal S2, Good Pedal Pulses (DP pulses 2+ bilaterally) GI: Normal bowel sounds (normal active sounds), Soft (non-distended), No hepatospenomegaly, No masses, Tenderness (mild). negative: Non tender Extremities/Musculoskeletal: Normal pulses (DP pulses 2+ bilaterally), Swelling (tr), Edema (tr). negative: Tenderness Skin: Warm,Dry and Intact, No rashes, No significant lesion Neurological: Strength at 5/5 X4 ext (Motor 5/5 throughout.), Normal tone, Cranial nerves 3-12 NL ( 2-12 grossly intact.) Psych/Mental Status: Appropriate, Normal Affect Lab/DI/Studies Reviewed: 05/02/16 04:30 05/02/16 04:30 Laboratory Results - last 24 hr 05/01/16 05/01/16 05/01/16 10:10 10:10 10:10 WBC 11.2 H RBC 4.58 Hgb 13.1 Hct 40.5 MCV 88 MCH 28.7 MCHC 32.5 L RDW 15.7 H Plt Count 266 MPV 6.4 L Neut % (Auto) 66.4 Lymph % (Auto) 20.1 [place] % (Auto) 12.8 H Eos % (Auto) 0.3 Baso % (Auto) 0.4 Absolute Neuts (auto) 7.39 Absolute Lymphs (auto) 2.24 PT INR APTT Puncture Site pH pCO2 pO2 HCO3 Total CO2 Base Excess FiO2 % Specimen Drawn By Sodium 136 L Potassium 3.6 Chloride 93 L Carbon Dioxide 35 H Anion Gap 12 BUN 18 H Creatinine 0.50 L Estimated GFR (MDRD) > 60 Glucose 84 Calculated Osmolality 263 L Lactic Acid 1.6 Calcium 8.8 Corrected Calcium 8.9 Total Bilirubin 0.4 AST 25 ALT 29 Alkaline Phosphatase 68 Troponin I < 0.01 [id number]-Rwxpkcmlfri Pept 125 Total Protein 6.8 Albumin 3.9 TSH Urine Color Urine Clarity Urine pH Ur Specific [place] Urine Protein Urine Glucose (UA) Urine Ketones Urine Occult Blood Urine Nitrite Urine Bilirubin Urine Urobilinogen Ur Leukocyte Esterase Urine RBC Urine WBC Ur Epithelial Cells Urine Mucus 05/01/16 05/01/16 05/01/16 10:10 10:10 10:25 WBC RBC Hgb Hct MCV MCH MCHC RDW Plt Count MPV Neut % (Auto) Lymph % (Auto) [place] % (Auto) Eos % (Auto) Baso % (Auto) Absolute Neuts (auto) Absolute Lymphs (auto) PT 11.6 H INR 1.1 APTT 27.2 Puncture Site Right brachial pH 7.390 pCO2 66.0 H pO2 59.0 L HCO3 40.0 H Total CO2 42.0 H Base Excess 12.1 H FiO2 % 2lpm nc Specimen Drawn By [place] Sodium Potassium Chloride Carbon Dioxide Anion Gap BUN Creatinine Estimated GFR (MDRD) Glucose Calculated Osmolality Lactic Acid Calcium Corrected Calcium Total Bilirubin AST ALT Alkaline Phosphatase Troponin I [id number]-Zleroucwjix Pept Total Protein Albumin TSH 10.80 H Urine Color Urine Clarity Urine pH Ur Specific [place] Urine Protein Urine Glucose (UA) Urine Ketones Urine Occult Blood Urine Nitrite Urine Bilirubin Urine Urobilinogen Ur Leukocyte Esterase Urine RBC Urine WBC Ur Epithelial Cells Urine Mucus 05/01/16 05/01/16 05/02/16 11:10 12:49 04:30 WBC RBC Hgb Hct MCV MCH MCHC RDW Plt Count MPV Neut % (Auto) Lymph % (Auto) [place] % (Auto) Eos % (Auto) Baso % (Auto) Absolute Neuts (auto) Absolute Lymphs (auto) PT INR APTT Puncture Site pH pCO2 pO2 HCO3 Total CO2 Base Excess FiO2 % Specimen Drawn By Sodium 133 L Potassium 3.8 Chloride 94 L Carbon Dioxide 28 Anion Gap 15 BUN 19 H Creatinine 0.70 Estimated GFR (MDRD) > 60 Glucose 122 H Calculated Osmolality 259 L Lactic Acid Calcium 9.0 Corrected Calcium Total Bilirubin AST ALT Alkaline Phosphatase Troponin I < 0.01 [id number]-E-Qlqxhrdosud Pept Total Protein Albumin TSH Urine Color Pale yellow Urine Clarity Clear Urine pH 7.0 Ur Specific [place] 1.005 Urine Protein Neg Urine Glucose (UA) Neg Urine Ketones Neg Urine Occult Blood Neg Urine Nitrite Neg Urine Bilirubin Neg Urine Urobilinogen <2.0 Ur Leukocyte Esterase Neg Urine RBC 0-2 Urine WBC 0-2 Ur Epithelial Cells Occ Urine Mucus Occ 05/02/16 04:30 WBC 8.7 RBC 4.41 Hgb 12.5 Hct 39.1 MCV 89 MCH 28.3 MCHC 31.9 L RDW 15.5 H Plt Count 236 MPV 7.1 L Neut % (Auto) Lymph % (Auto) [place] % (Auto) Eos % (Auto) Baso % (Auto) Absolute Neuts (auto) Absolute Lymphs (auto) PT INR APTT Puncture Site pH pCO2 pO2 HCO3 Total CO2 Base Excess FiO2 % Specimen Drawn By Sodium Potassium Chloride Carbon Dioxide Anion Gap BUN Creatinine Estimated GFR (MDRD) Glucose Calculated Osmolality Lactic Acid Calcium Corrected Calcium Total Bilirubin AST ALT Alkaline Phosphatase Troponin I Bmi-C-Fpcmbmeowss Pept Total Protein Albumin TSH Urine Color Urine Clarity Urine pH Ur Specific [place] Urine Protein Urine Glucose (UA) Urine Ketones Urine Occult Blood Urine Nitrite Urine Bilirubin Urine Urobilinogen Ur Leukocyte Esterase Urine RBC Urine WBC Ur Epithelial Cells Urine Mucus - Assessment (1) Community acquired pneumonia Acute J18.9 - PNEUMONIA, UNSPECIFIED ORGANISM Comment/Plan: Zithromax Rocephin and probiotics ordered with streaky left basilar infiltrate noted. (2) Acute respiratory failure Acute J96.00 - ACUTE RESPIRATORY FAILURE, UNSP W HYPOXIA OR HYPERCAPNIA Qualifiers: Respiratory failure complication: hypoxia and hypercapnia Qualified Code(s) : J96.01 - Acute respiratory failure with hypoxia; J96.02 - Acute respiratory failure with hypercapnia Comment/Plan: Significant hypercapnia and hypoxia associated with her pneumonia and COPD exacerbation warrant the use supplemental O2 and may need intubation should she continued to deteriorate. Will place her in a closely monitored setting. (3) Hypothyroidism Chronic E03.9 - HYPOTHYROIDISM, UNSPECIFIED Qualifiers: Hypothyroidism type: acquired Qualified Code(s): E03.9 - Hypothyroidism, unspecified Comment/Plan: Continue Synthroid (4) COPD exacerbation Acute J44.1 - CHRONIC OBSTRUCTIVE PULMONARY DISEASE W (ACUTE) EXACERBATION Comment/Plan: Nebulizers IV antibiotics and steroids are ordered for her acute COPD exacerbation and pneumonia. (5) Hyponatremia Acute E87.1 - HYPO-OSMOLALITY AND HYPONATREMIA Comment/Plan: Stable (6) Tobacco abuse Chronic Z72.0 - TOBACCO USE Comment/Plan: Stressed smoking cessation at length. She states that she is trying to quit x 2 months with minimal to no use over that period time. Case Care Discussed with: Patient, Nursing Staff, Resource Management Education/Counseling Given To: Patient Education/Counseling Given Regarding: Diagnosis, Treatment Total Time: 39 min Critical Care: No Code: 47738 (12+)
[2016-05-02] MEDS ORDERED: Non-Formulary Medication ITEM (Omeprazole [Omeprazole] 20 MG) PO SCH (09:00)
[2016-05-02] MEDS ORDERED: LEVOTHYROXINE 75 MCG (0.075 MG) TAB PO SCH (09:00)
[2016-05-02] MEDS: MONTELUKAST SODIUM 10 MG TAB PO SCH (09:07)
[2016-05-02] MEDS: FUROSEMIDE 20 MG TAB PO SCH (09:07)
[2016-05-02] MEDS: CARVEDILOL 3.125 MG TAB PO SCH ×2 (09:07→22:25)
[2016-05-02] MEDS: ROFLUMILAST 500 MCG TAB PO SCH (09:07)
[2016-05-02] MEDS: LISINOPRIL 5 MG TAB PO SCH (09:08)
[2016-05-02] MEDS: THEOPHYLLINE 300 MG PO SCH ×2 (09:25→22:25)
[2016-05-02] MEDS: BuPROPion 150 MG SR TAB PO SCH (09:25)
[2016-05-02] MEDS: TRAMADOL HCL 50 MG TAB PO PRN ×2 (12:44→22:17)
[2016-05-02] MEDS: NICOTINE 21 MG PATCH TOP SCH (14:30)
[2016-05-02] MEDS: AZITHROMYCIN 500 MG in D5W 250 ML IV SCH (14:31)
--- NOTE | 2016-05-02 15:12 | PCM.PULM ---
Chief Complaint: Respiratory failure acute on chronic with hypoxia Pneumonia COPD exacerbation Anxiety Patient in chair today. Breathing is short. Has a c/o JOSEPH,SOB,cough, sputum, BLEs edema, wheeze. Denies chest pain. Medication list reviewed:yes Notes reviewed:yes, Events from last night noted and discussed with Clinical Staff DVT prophylaxis:yes - Physical Examination Vital Signs and I&O: Last Vital Signs Temp 97.6 F 05/02/16 11:29 Pulse 115 05/02/16 13:29 Resp 20 05/02/16 11:29 BP 114/61 05/02/16 11:29 Pulse Ox 94 05/02/16 11:29 Oxygen Pulse Oxygen Saturation 94 O2 Device Nasal Cannula Oxygen Flow Rate 2 Fraction of Inspired Oxygen ( FIO2) Intake & Output 04/29/16 04/30/16 05/01/16 05/02/16 23:59 23:59 23:59 23:59 Intake Total 546 360 Output Total 1450 1150 Balance -904 -790 Patient's weight 50.802 kg 50.757 kg General: Alert, Oriented x3, Cooperative, No acute distress, Fatigue Respiratory: Diminished, Rhonchi, Tachypnea, Wheezes Cardiovascular: Regular rate, Regular rate and rhythm, Normal S1, No Gallops, Rubs/Murmurs, Normal S2 GI: Normal bowel sounds, Soft, Non tender, No hepatospenomegaly, No masses Extremities/Musculoskeletal: Normal pulses, Edema (trace BLEs) Skin: Warm,Dry and Intact, No rashes, No breakdown, No significant lesion Neurological: Normal Steady Gait, Normal speech, Strength at 5/5 X4 ext, Cranial nerves 3-12 NL Psych/Mental Status: Appropriate Result Diagrams: 05/02/16 04:30 05/02/16 04:30 Labs (last 24 hours): Laboratory Results - last 24 hr 05/02/16 05/02/16 04:30 04:30 WBC 8.7 RBC 4.41 Hgb 12.5 Hct 39.1 MCV 89 MCH 28.3 MCHC 31.9 L RDW 15.5 H Plt Count 236 MPV 7.1 L Sodium 133 L Potassium 3.8 Chloride 94 L Carbon Dioxide 28 Anion Gap 15 BUN 19 H Creatinine 0.70 Estimated GFR (MDRD) > 60 Glucose 122 H Calculated Osmolality 259 L Calcium 9.0 Lab/DI/Studies Reviewed: EKG: NSR, NO ST or ST wave changes noted Microbiology 05/01/16 12:49 Sputum Gram Stain - Final 05/01/16 12:49 Sputum Sputum Culture - Preliminary <culture reincubated> Medications Levothyroxine Sodium (Synthroid, Levoxyl) 75 mcg PO DAILY [facility] Stop: 05/16/16 08:59 Last Admin: 05/02/16 09:07 Dose: 75 mcg Nicotine (Nicoderm) 21 mg TOP Q24H [facility] Stop: 05/15/16 13:59 Last Admin: 05/02/16 14:30 Dose: 21 mg Lisinopril (Zestril) 5 mg PO DAILY [facility] Stop: 05/16/16 08:59 Last Admin: 05/02/16 09:08 Dose: 5 mg Methylprednisolone Sodium Succinate (Solu-Medrol) 80 mg IV Q6H [facility] Stop: 05/15/16 15:59 Last Admin: 05/02/16 09:08 Dose: 80 mg Oxycodone HCl (Oxycodone Immediate Release (Oxyir)) 5 mg PO Q4H PRN PRN Reason: Severe Pain Stop: 05/15/16 16:59 Acetaminophen (Tylenol Tablet) 650 mg PO Q6H PRN; Protocol PRN Reason: Mild Pain or Fever above 100.4 Stop: 05/15/16 16:59 Acetazolamide (Diamox) 500 mg PO MoWeFr@0900 [facility] Stop: 05/15/16 13:59 Last Admin: 05/01/16 14:25 Dose: 500 mg Albuterol/Ipratropium (Duoneb) 3 ml NEB RTQ6 [facility] Stop: 05/15/16 16:59 Last Admin: 05/02/16 13:22 Dose: 3 ml Alprazolam (Xanax) 0.5 mg PO TID [facility] Stop: 05/15/16 13:59 Last Admin: 05/02/16 14:31 Dose: 0.5 mg Azithromycin 500 mg/ Dextrose 250 mls @ 250 mls/hr IV Q24H [facility] Stop: 05/06/16 13:59 Last Admin: 05/02/16 14:31 Dose: 250 mls/hr Benzonatate (Tessalon) 200 mg PO Q8H PRN PRN Reason: Cough - First Option Stop: 05/15/16 16:59 Ceftriaxone Sodium 1 gm/ (Dextrose) 100 mls @ 100 mls/hr IV Q24H [facility] Stop: 05/08/16 15:59 Last Admin: 05/01/16 16:58 Dose: 100 mls/hr Carvedilol (Coreg) 3.125 mg PO BID [facility] Stop: 05/15/16 20:59 Last Admin: 05/02/16 09:07 Dose: 3.125 mg Enoxaparin Sodium (Lovenox) 40 mg SQ Q24H DAI Stop: 05/15/16 17:59 Last Admin: 05/01/16 16:59 Dose: 40 mg Furosemide (Lasix) 20 mg PO DAILY [facility] Stop: 05/16/16 08:59 Last Admin: 05/02/16 09:07 Dose: 20 mg Chlorphenir/Hydrocodone Polistirex (Tussionex) 5 ml PO BID PRN PRN Reason: Cough - Alternative Stop: 05/15/16 16:59 Pantoprazole Sodium (Protonix) 40 mg PO 0600 [facility] Stop: 05/16/16 05:59 Last Admin: 05/02/16 04:56 Dose: 40 mg Theophylline (Umer-Dur) 300 mg PO BID [facility] Stop: 05/16/16 16:59 Last Admin: 05/02/16 09:25 Dose: 300 mg Tramadol HCl (Ultram) 100 mg PO Q6H PRN PRN Reason: MODERATE PAIN Stop: 05/15/16 12:16 Last Admin: 05/02/16 12:44 Dose: 100 mg Zolpidem Tartrate (Ambien) 5 mg PO 2100,2200 PRN PRN Reason: Sleep or Insomnia Stop: 05/15/16 16:59 - Assessment/Plan (1) Community acquired pneumonia Acute J18.9 - PNEUMONIA, UNSPECIFIED ORGANISM (2) Hypoxia Acute R09.02 - HYPOXEMIA (3) Acute exacerbation of chronic obstructive airways disease Acute J44.1 - CHRONIC OBSTRUCTIVE PULMONARY DISEASE W (ACUTE) EXACERBATION (4) COPD exacerbation Acute J44.1 - CHRONIC OBSTRUCTIVE PULMONARY DISEASE W (ACUTE) EXACERBATION (5) Anxiety Chronic F41.9 - ANXIETY DISORDER, UNSPECIFIED
[2016-05-02] MEDS: CEFTRIAXONE 1 GM in D5W 100 ML IV SCH (17:03)
[2016-05-02] MEDS: ENOXAPARIN 40 MG/0.4 ML PFS SQ SCH (17:03)
[2016-05-02] MEDS: PROBIOTIC BLEND TAB PO SCH (17:11)
--- NOTE | 2016-05-02 22:07 | HIMCONS ---
DATE OF CONSULT: REQUESTING PHYSICIAN: Charli aHssan MD REASON FOR CONSULTATION: Respiratory failure. HISTORY OF PRESENT ILLNESS: The patient is a 61-year-old lady, well known to me from previous office and hospital visits. The patient has been seen in my office couple of days ago prior to her admission with shortness of breath, wheezing, coughing, and had yellowish phlegm. The patient was given p.o. Zithromax along with Solu-Medrol 125 milligrams IM x1 and prednisone 40 mg a day. However, the patient did not improve with these symptom and had low-grade fever eventually ended up in the emergency room. The patient has had history of nausea and vomiting for the past few days and had been quit smoking few weeks prior to this. Denies any hemoptysis, hematemesis, hematochezia, nausea, vomiting, diarrhea, or constipation. PAST MEDICAL HISTORY: Significant for CHF and hypertension, COPD, UTI, gastroesophageal reflux disease, arthritis, hypertension, hypothyroidism, history of depression and anxiety. SURGICAL HISTORY: Significant for cholecystectomy, history of colon polyps removed. ALLERGIES: THE PATIENT IS ALLERGIC TO LEVAQUIN CAUSING BREATHING DIFFICULTY. MEDICATIONS: In the chart were noted. FAMILY HISTORY: Significant for diabetes, hypertension, cancer, cardiac disorder. SOCIAL HISTORY: The patient has been a smoker most of her adult life, quit few weeks ago. No history of alcohol or drug abuse. REVIEW OF SYSTEMS: Detailed review of systems is negative except for as mentioned in the history of present illness. PHYSICAL EXAMINATION: VITAL SIGNS: Temperature 97.7 degrees Fahrenheit, pulse is 92, respiratory rate is 18, blood pressure 108/57, pulse ox 96% on 2 liters nasal cannula. CHEST: Scattered bilateral wheezing. HEART: S1, S2. Regular. No murmur. EXTREMITIES: No clubbing, cyanosis, or edema. ABDOMEN: Soft and nontender. Bowel sounds present. Hepatosplenomegaly is absent. NEURO: The patient moving all extremities. LABORATORY DATA: White count is 8.7, hemoglobin is 12.5, hematocrit 39.1, platelets are 236. PT and INR within normal limits. Blood gas on admission; pH was 7.39, pCO2 of 66, PO2 of 59 on 2 liters nasal cannula. Sodium 133, potassium 3.8, chloride 94, CO2 is 28, BUN is 19, creatinine 0.7, glucose is 122. LFTs are within normal limits. IMAGING REPORTS: Chest x-ray was seen personally. The patient seems to have hyperinflated lung simon with no acute infiltrate. Minimal left basal atelectasis were noted. IMPRESSION: 1. Giidw-fh-[id number] respiratory failure. 2. Chronic obstructive pulmonary disease with exacerbation. 3. Hyponatremia, nicotine addiction. PLAN: The patient has been admitted and was placed on nebulizers, both Atrovent and Proventil q.6 hours, and also getting Zithromax and Rocephin IV and Solu-Medrol 80 mg IV q.6 hours. She is feeling much better; however, complains of constipation. I would start the patient on Colace at this time and cut down the Solu-Medrol to 40 mg IV q.8 hours. Thank you very much for the consultation. I will follow the patient with you. [id number]
[2016-05-02] MEDS: ATORVASTATIN 40 MG TAB PO SCH (22:24)
[2016-05-02] MEDS: ROPINIROLE 1 MG TAB PO SCH (22:25)
[2016-05-02] MEDS: METHYLPREDNISOLONE 40 MG/1 ML VIAL IV SCH (23:11)
[2016-05-03] MEDS: Albuterol/Ipratropium Neb 3 ML NEB NEB SCH ×4 (01:24→19:28)
[2016-05-03 05:13] LABS: ALLEN'S TEST PASS; BEb 1.7 (+/- 2)
[2016-05-03 05:20] LABS: ABG Draw Site Left Brachial
[2016-05-03 05:22] LABS: BLOOD UREA NITROGEN 27 MG/DL (7-17); CALCULATED OSMOLALITY 254 MOs/Kg (270-290); CHLORIDE 95 mEq/L (98-107); GLUCOSE 98 mg/dL (70-99); SODIUM LEVEL 129 mEq/L (137-146)
[2016-05-03] MEDS: PANTOPRAZOLE 40 MG TAB PO SCH ×2 (05:37→18:49)
[2016-05-03] MEDS: METHYLPREDNISOLONE 40 MG/1 ML VIAL IV SCH ×3 (05:37→21:26)
[2016-05-03] MEDS: ALPRAZOLAM 0.5 MG TAB PO SCH ×3 (05:37→21:25)
[2016-05-03] MEDS: TRAMADOL HCL 50 MG TAB PO PRN ×3 (05:43→21:25)
--- NOTE | 2016-05-03 07:39 | DIRPT ---
CLINICAL DATA: Respiratory failure EXAM: PORTABLE CHEST 1 VIEW COMPARISON: 05/01/2016 FINDINGS: Stable heart size and vascularity. Mild hyperinflation compatible with background COPD/ emphysema. Similar basilar scarring. No focal pneumonia, collapse or consolidation. No edema, effusion or pneumothorax. Trachea midline. Atherosclerosis of the aorta. Bones are osteopenic. Degenerative changes of the spine. IMPRESSION: Stable chronic chest findings. No superimposed acute process. Electronically Signed By: Rivera Allan M.D. On: 05/03/2016 07:36
[2016-05-03] MEDS: BUDESONIDE 0.5 MG NEB NEB SCH ×2 (07:52→19:32)
--- NOTE | 2016-05-03 08:02 | PCM.PULM ---
Chief Complaint: Respiratory failure acute on chronic with hypoxia Pneumonia COPD exacerbation Hypoxia Anxiety Patient breathing is improving slowly. Still has a cough with some chest congestion,SOB,JOSEPH,wheeze. Pain under her ribs improving. Medication list and notes reviewed:yes, Events from last night noted and discussed with Clinical Staff - Physical Examination Vital Signs and I&O: Last Vital Signs Temp 97.9 F 05/03/16 07:19 Pulse 92 05/03/16 07:48 Resp 18 05/03/16 07:19 BP 100/53 L 05/03/16 07:19 Pulse Ox 93 05/03/16 07:43 Oxygen Pulse Oxygen Saturation 93 O2 Device Nasal Cannula Oxygen Flow Rate 2.5 Fraction of Inspired Oxygen ( FIO2) Intake & Output 04/30/16 05/01/16 05/02/16 05/03/16 23:59 23:59 23:59 23:59 Intake Total 546 650 Output Total 1450 2050 400 Balance -904 -1400 -400 Patient's weight 50.802 kg 50.757 kg 51.573 kg General: Alert, Oriented x3, Cooperative, No acute distress, Fatigue Respiratory: Diminished Cardiovascular: Regular rate, Regular rate and rhythm, Normal S1, No Gallops, Rubs/Murmurs, Normal S2, Good Pedal Pulses GI: Normal bowel sounds, Soft, Non tender, No hepatospenomegaly, No masses Extremities/Musculoskeletal: Normal pulses Skin: Warm,Dry and Intact, No rashes, No breakdown, No significant lesion Neurological: Normal Steady Gait, Normal speech, Strength at 5/5 X4 ext, Normal tone, Cranial nerves 3-12 NL Psych/Mental Status: Appropriate Result Diagrams: 05/03/16 04:25 05/03/16 04:25 Labs (last 24 hours): Laboratory Results - last 24 hr 05/03/16 05/03/16 05/03/16 04:25 04:25 05:00 WBC 8.9 RBC 4.27 Hgb 12.2 Hct 37.1 MCV 87 MCH 28.6 MCHC 33.0 RDW 15.4 H Plt Count 242 MPV 7.0 L Puncture Site Left brachial pH 7.440 pCO2 38.0 pO2 59.0 L HCO3 25.8 Total CO2 27.0 Base Excess 1.7 FiO2 % 2.5lpm/nc Specimen Drawn By Alhham Sodium 129 L Potassium 3.9 Chloride 95 L Carbon Dioxide 26 Anion Gap 12 BUN 27 H Creatinine 0.70 Estimated GFR (MDRD) > 60 Glucose 98 Calculated Osmolality 254 L Calcium 9.0 Lab/DI/Studies Reviewed: EKG: NSR, NO ST or ST wave changes noted Cxray: 1 view chest x-ray was seen personally patient seems to have no acute infiltrates minimal hilar fullness however that has been chronic hyperinflated lung simon were noted Medications Methylprednisolone Sodium Succinate (Solu-Medrol) 40 mg IV Q6H DAI Stop: 05/17/16 00:00 Last Admin: 05/03/16 05:37 Dose: 40 mg Levothyroxine Sodium (Synthroid, Levoxyl) 100 mcg PO DAILY DAI Stop: 05/16/16 08:59 Montelukast Sodium (Singulair) 10 mg PO DAILY DAI Stop: 05/16/16 08:59 Last Admin: 05/02/16 09:07 Dose: 10 mg Pantoprazole Sodium (Protonix) 40 mg PO 0600,1800 [facility] Stop: 05/17/16 17:59 Albuterol/Ipratropium (Duoneb) 3 ml NEB RTQ6 DAI Stop: 05/15/16 16:59 Last Admin: 05/03/16 07:44 Dose: 3 ml Albuterol (Proventil Hfa) 2 puff INH Q4H PRN PRN Reason: Shortness of Breath Stop: 05/15/16 12:16 Alprazolam (Xanax) 0.5 mg PO TID DAI Stop: 05/15/16 13:59 Last Admin: 05/03/16 05:37 Dose: 0.5 mg Budesonide (Pulmicort) 0.5 mg NEB RTBID DAI Stop: 05/15/16 19:59 Last Admin: 05/03/16 07:52 Dose: 0.5 mg Bupropion HCl (Wellbutrin-Sr) 150 mg PO DAILY [facility] Stop: 05/03/16 09:01 Last Admin: 05/02/16 09:25 Dose: 150 mg Carvedilol (Coreg) 3.125 mg PO BID DAI Stop: 05/15/16 20:59 Last Admin: 05/02/16 22:25 Dose: 3.125 mg Ceftriaxone Sodium 1 gm/ (Dextrose) 100 mls @ 100 mls/hr IV Q24H [facility] Stop: 05/08/16 15:59 Last Admin: 05/02/16 17:03 Dose: 100 mls/hr Docusate Sodium (Colace) 100 mg PO BID [facility] Stop: 05/16/16 16:59 Enoxaparin Sodium (Lovenox) 40 mg SQ Q24H [facility] Stop: 05/15/16 17:59 Last Admin: 05/02/16 17:03 Dose: 40 mg Lact Acid/Bifidobact/Lact [place]/Streptoc Th (July Q) 1 tab PO BIDLS [facility] Stop: 05/16/16 16:59 Last Admin: 05/02/16 17:11 Dose: 1 tab Zolpidem Tartrate (Ambien) 5 mg PO 2100,2200 PRN PRN Reason: Sleep or Insomnia Stop: 05/15/16 16:59 Last Admin: 05/03/16 02:08 Dose: 5 mg Tramadol HCl (Ultram) 100 mg PO Q6H PRN PRN Reason: MODERATE PAIN Stop: 05/15/16 12:16 Last Admin: 05/03/16 05:43 Dose: 100 mg Theophylline (Umer-Dur) 300 mg PO BID [facility] Stop: 05/16/16 16:59 Last Admin: 05/02/16 22:25 Dose: 300 mg - Assessment/Plan (1) Community acquired pneumonia Acute J18.9 - PNEUMONIA, UNSPECIFIED ORGANISM Comment/Plan: I would continue the current supportive care on this patient including antibiotics DVT and GI prophylaxis oxygen nebulizers and would cut down the steroids to Solu-Medrol 20 mg IV q.8 hours and start hypertonic saline nebulizers as patient is allergic to Mucomyst nebulizers (2) Hypoxia Acute R09.02 - HYPOXEMIA (3) Acute exacerbation of chronic obstructive airways disease Acute J44.1 - CHRONIC OBSTRUCTIVE PULMONARY DISEASE W (ACUTE) EXACERBATION (4) COPD exacerbation Acute J44.1 - CHRONIC OBSTRUCTIVE PULMONARY DISEASE W (ACUTE) EXACERBATION (5) Anxiety Chronic F41.9 - ANXIETY DISORDER, UNSPECIFIED
--- NOTE | 2016-05-03 08:19 | GENMEDPROG ---
Chief Complaint: less sob Notes Reviewed: Yes: Events from last night noted and discussed with Clinical Staff Current Medication List: Reviewed Currently: Reports: Cough, Tobacco Use/Hx (off X 2months) DVT Prophylaxis: Yes - Physical Examination Vital Signs and I&O: Last Vital Signs Temp 97.9 F 05/03/16 07:19 Pulse 92 05/03/16 07:48 Resp 18 05/03/16 07:19 BP 100/53 L 05/03/16 07:19 Pulse Ox 93 05/03/16 07:43 Oxygen Pulse Oxygen Saturation 93 O2 Device Nasal Cannula Oxygen Flow Rate 2.5 Fraction of Inspired Oxygen ( FIO2) Intake & Output 04/30/16 05/01/16 05/02/16 05/03/16 23:59 23:59 23:59 23:59 Intake Total 546 650 Output Total 1450 2050 400 Balance -904 -1400 -400 Patient's weight 50.802 kg 50.757 kg 51.573 kg General: Alert, Oriented x3, No acute distress, Well appearing, Well nourished HEENT: Normal (Normocephalic, atraumatic;EOMI.Sclera white, Nares patent, without discharge or bleeding. No oropharyngeal lesions or erythema. Mucous membranes are dry.) Neck: Non-tender, Full range of motion, Normal Trachea alignment, Normal inspection (No cervical lymphadenopathy. No supraclavicular lymphadenopathy.), No Masses palpable, Supple Lymphatics: Normal (No cervical lymphadenopathy. No supraclavicular lymphadenopathy.) Respiratory: Accessory Muscle Use, Diminished, Rhonchi (w/cough), Stridor, Wheezes. negative: Tachypnea Cardiovascular: Regular rate and rhythm (No bradycardia or tachycardia), Normal S1, No Gallops,Rubs/Murmurs, Normal S2, Good Pedal Pulses (DP pulses 2+ bilaterally) GI: Normal bowel sounds (normal active sounds), Soft (non-distended), No hepatospenomegaly, No masses, Tenderness (mild). negative: Non tender Extremities/Musculoskeletal: Normal pulses (DP pulses 2+ bilaterally), Swelling (tr), Edema (tr). negative: Tenderness Skin: Warm,Dry and Intact, No rashes, No significant lesion Neurological: Strength at 5/5 X4 ext (Motor 5/5 throughout.), Normal tone, Cranial nerves 3-12 NL ( 2-12 grossly intact.) Psych/Mental Status: Appropriate, Normal Affect Lab/DI/Studies Reviewed: 05/03/16 04:25 05/03/16 04:25 Laboratory Results - last 24 hr 05/03/16 05/03/16 05/03/16 04:25 04:25 05:00 WBC 8.9 RBC 4.27 Hgb 12.2 Hct 37.1 MCV 87 MCH 28.6 MCHC 33.0 RDW 15.4 H Plt Count 242 MPV 7.0 L Puncture Site Left brachial pH 7.440 pCO2 38.0 pO2 59.0 L HCO3 25.8 Total CO2 27.0 Base Excess 1.7 FiO2 % 2.5lpm/nc Specimen Drawn By Robe Sodium 129 L Potassium 3.9 Chloride 95 L Carbon Dioxide 26 Anion Gap 12 BUN 27 H Creatinine 0.70 Estimated GFR (MDRD) > 60 Glucose 98 Calculated Osmolality 254 L Calcium 9.0 - Assessment (1) Community acquired pneumonia Acute J18.9 - PNEUMONIA, UNSPECIFIED ORGANISM Comment/Plan: Zithromax Rocephin and probiotics ordered with streaky left basilar infiltrate noted. (2) Hyponatremia Acute E87.1 - HYPO-OSMOLALITY AND HYPONATREMIA Comment/Plan: Getting worse and suspect is due to her pneumonia. IV fluids are ordered. (3) Acute respiratory failure Acute J96.00 - ACUTE RESPIRATORY FAILURE, UNSP W HYPOXIA OR HYPERCAPNIA Qualifiers: Respiratory failure complication: hypoxia and hypercapnia Qualified Code(s) : J96.01 - Acute respiratory failure with hypoxia; J96.02 - Acute respiratory failure with hypercapnia Comment/Plan: Hypercarbia is being treated with theophylline and Diamox. Hopefully these measures will only be temporary. (4) Hypothyroidism Chronic E03.9 - HYPOTHYROIDISM, UNSPECIFIED Qualifiers: Hypothyroidism type: acquired Qualified Code(s): E03.9 - Hypothyroidism, unspecified Comment/Plan: TSH>10 will increase synthroid to 100mcg/day. (5) COPD exacerbation Acute J44.1 - CHRONIC OBSTRUCTIVE PULMONARY DISEASE W (ACUTE) EXACERBATION Comment/Plan: Nebulizers IV antibiotics and steroids are ordered for her acute COPD exacerbation and pneumonia. (6) Tobacco abuse Chronic Z72.0 - TOBACCO USE Comment/Plan: Stressed smoking cessation at length. She states that she is trying to quit x 2 months with minimal to no use over that period time. Case Care Discussed with: Patient, Nursing Staff Education/Counseling Given To: Patient Education/Counseling Given Regarding: Diagnosis Total Time: 39 min Critical Care: No Code: 43084 (12+)
[2016-05-03] MEDS ORDERED: MAGNESIUM CITRATE 10 OZ BOTTLE PO ONE (09:00)
[2016-05-03] MEDS ORDERED: PANTOPRAZOLE 40 MG TAB PO SCH (09:00)
[2016-05-03] MEDS: CARVEDILOL 3.125 MG TAB PO SCH ×2 (09:19→21:26)
[2016-05-03] MEDS: Docusate Sodium 100 MG CAP PO SCH ×2 (09:19→21:22)
[2016-05-03] MEDS: ROFLUMILAST 500 MCG TAB PO SCH (09:21)
[2016-05-03] MEDS: FUROSEMIDE 20 MG TAB PO SCH (09:22)
[2016-05-03] MEDS: ACETAZOLAMIDE 250 MG TAB PO SCH (09:22)
[2016-05-03] MEDS: MONTELUKAST SODIUM 10 MG TAB PO SCH (09:23)
[2016-05-03] MEDS: LEVOTHYROXINE 100 MCG (0.1 MG) TAB PO SCH (09:24)
[2016-05-03] MEDS: BuPROPion 150 MG SR TAB PO SCH (09:24)
[2016-05-03] MEDS: THEOPHYLLINE 300 MG PO SCH ×2 (09:24→21:24)
[2016-05-03] MEDS: LISINOPRIL 5 MG TAB PO SCH (09:25)
[2016-05-03] MEDS: SODIUM CHLORIDE NEB SCH ×2 (09:56→15:42)
[2016-05-03] MEDS: PROBIOTIC BLEND TAB PO SCH ×2 (11:47→18:48)
[2016-05-03] MEDS: PEG-ELECTROLYTE 17 GM PACK PO SCH ×2 (11:47→18:49)
[2016-05-03] MEDS: NICOTINE 21 MG PATCH TOP SCH (13:34)
[2016-05-03] MEDS: AZITHROMYCIN 500 MG in D5W 250 ML IV SCH (13:34)
[2016-05-03] MEDS: CEFTRIAXONE 1 GM in D5W 100 ML IV SCH (15:26)
[2016-05-03] MEDS: NS/KCl 20 mEq 1,000 ML IV SCH ×2 (16:36→23:21)
[2016-05-03] MEDS: ENOXAPARIN 40 MG/0.4 ML PFS SQ SCH (18:49)
[2016-05-03] MEDS ORDERED: BuPROPion 150 MG SR TAB PO SCH (21:00)
[2016-05-03] MEDS: ATORVASTATIN 40 MG TAB PO SCH (21:25)
[2016-05-03] MEDS: ROPINIROLE 1 MG TAB PO SCH (21:25)
[2016-05-04] MEDS: SODIUM CHLORIDE NEB SCH ×3 (00:15→16:05)
[2016-05-04] MEDS: Albuterol/Ipratropium Neb 3 ML NEB NEB SCH ×4 (01:15→19:38)
[2016-05-04 03:55] LABS: MPV 6.9 fL (7.4-10.4)
[2016-05-04 04:11] LABS: BLOOD UREA NITROGEN 18 MG/DL (7-17); CALCIUM 8.2 MG/DL (8.4-10.2); CALCULATED OSMOLALITY 256 MOs/Kg (270-290); CHLORIDE 103 mEq/L (98-107); GLUCOSE 85 mg/dL (70-99); SODIUM LEVEL 132 mEq/L (137-146)
[2016-05-04] MEDS: NS/KCl 20 mEq 1,000 ML IV SCH (05:51)
[2016-05-04] MEDS: ALPRAZOLAM 0.5 MG TAB PO SCH ×3 (05:51→21:20)
[2016-05-04] MEDS: METHYLPREDNISOLONE 40 MG/1 ML VIAL IV SCH ×2 (05:51→13:38)
[2016-05-04] MEDS: PANTOPRAZOLE 40 MG TAB PO SCH ×2 (05:51→16:50)
[2016-05-04] MEDS: BUDESONIDE 0.5 MG NEB NEB SCH ×2 (07:37→19:39)
--- NOTE | 2016-05-04 08:31 | GENMEDPROG ---
Chief Complaint: sob better LS pain COUGH BETTER Notes Reviewed: Yes: Events from last night noted and discussed with Clinical Staff Current Medication List: Reviewed Currently: Reports: Cough, Tobacco Use/Hx (off X 2months) DVT Prophylaxis: Yes - Physical Examination Vital Signs and I&O: Last Vital Signs Temp 98.0 F 05/04/16 07:19 Pulse 78 05/04/16 07:59 Resp 18 05/04/16 07:19 BP 132/65 05/04/16 07:19 Pulse Ox 95 05/04/16 07:32 Oxygen Pulse Oxygen Saturation 95 O2 Device Nasal Cannula Oxygen Flow Rate 2 Fraction of Inspired Oxygen ( FIO2) Intake & Output 05/01/16 05/02/16 05/03/16 05/04/16 23:59 23:59 23:59 23:59 Intake Total 721 712 9897 1952 Output Total 1450 2050 2842 720 Balance -886 -3778 -1963 1232 Patient's weight 50.802 kg 50.757 kg 51.573 kg General: Alert, Oriented x3, No acute distress, Well appearing, Well nourished HEENT: Normal (Normocephalic, atraumatic;EOMI.Sclera white, Nares patent, without discharge or bleeding. No oropharyngeal lesions or erythema. Mucous membranes are dry.) Neck: Non-tender, Full range of motion, Normal Trachea alignment, Normal inspection (No cervical lymphadenopathy. No supraclavicular lymphadenopathy.), No Masses palpable, Supple Lymphatics: Normal (No cervical lymphadenopathy. No supraclavicular lymphadenopathy.) Respiratory: Accessory Muscle Use, Diminished, Rhonchi (w/cough), Stridor, Wheezes. negative: Tachypnea Cardiovascular: Regular rate and rhythm (No bradycardia or tachycardia), Normal S1, No Gallops,Rubs/Murmurs, Normal S2, Good Pedal Pulses (DP pulses 2+ bilaterally) GI: Normal bowel sounds (normal active sounds), Soft (non-distended), No hepatospenomegaly, No masses, Tenderness (mild). negative: Non tender Extremities/Musculoskeletal: Normal pulses (DP pulses 2+ bilaterally), Swelling (tr), Edema (tr). negative: Tenderness Skin: Warm,Dry and Intact, No rashes, No significant lesion Neurological: Strength at 5/5 X4 ext (Motor 5/5 throughout.), Normal tone, Cranial nerves 3-12 NL ( 2-12 grossly intact.) Psych/Mental Status: Appropriate, Normal Affect Lab/DI/Studies Reviewed: 05/04/16 03:10 05/04/16 03:10 Laboratory Results - last 24 hr 05/04/16 05/04/16 03:10 03:10 WBC 6.3 RBC 4.19 L Hgb 12.1 Hct 36.7 MCV 88 MCH 28.8 MCHC 32.9 L RDW 15.2 H Plt Count 229 MPV 6.9 L Sodium 132 L Potassium 4.1 Chloride 103 Carbon Dioxide 25 Anion Gap 8 BUN 18 H Creatinine 0.70 Estimated GFR (MDRD) > 60 Glucose 85 Calculated Osmolality 256 L Calcium 8.2 L - Assessment (1) Community acquired pneumonia Acute J18.9 - PNEUMONIA, UNSPECIFIED ORGANISM Comment/Plan: Zithromax Rocephin and probiotics ordered with streaky left basilar infiltrate noted. (2) Hyponatremia Acute E87.1 - HYPO-OSMOLALITY AND HYPONATREMIA Comment/Plan: Getting worse and suspect is due to her pneumonia. IV fluids are ordered. (3) Acute respiratory failure Acute J96.00 - ACUTE RESPIRATORY FAILURE, UNSP W HYPOXIA OR HYPERCAPNIA Qualifiers: Respiratory failure complication: hypoxia and hypercapnia Qualified Code(s) : J96.01 - Acute respiratory failure with hypoxia; J96.02 - Acute respiratory failure with hypercapnia Comment/Plan: Hypercarbia is being treated with theophylline and Diamox. Hopefully these measures will only be temporary. Says aubrey opens up my chest and feels like she is breathing better with it. (4) Hypothyroidism Chronic E03.9 - HYPOTHYROIDISM, UNSPECIFIED Qualifiers: Hypothyroidism type: acquired Qualified Code(s): E03.9 - Hypothyroidism, unspecified Comment/Plan: TSH>10 increased synthroid to 100mcg/day. (5) COPD exacerbation Acute J44.1 - CHRONIC OBSTRUCTIVE PULMONARY DISEASE W (ACUTE) EXACERBATION Comment/Plan: Nebulizers IV antibiotics and steroids are ordered for her acute COPD exacerbation and pneumonia. (6) Tobacco abuse Chronic Z72.0 - TOBACCO USE Comment/Plan: Stressed smoking cessation at length. She states that she is trying to quit x 2 months with minimal to no use over that period time. Disposition Plan: Probable discharge tomorrow home. Case Care Discussed with: Patient, Nursing Staff, Resource Management Education/Counseling Given To: Patient Education/Counseling Given Regarding: Diagnosis, Treatment Total Time: 39 min Critical Care: No Code: 60949 (12+)
--- NOTE | 2016-05-04 08:49 | PCM.PULM ---
Chief Complaint: Patient breathing is improving. not much of wheeze. Patient ambulating in room and on oxygen Current complaints: SOB,JOSEPH,cough, sputum,loose stool. Denies chest pain Medication list reviewed:yes Notes reviewed:yes, Events from last night noted and discussed with Clinical Staff DVT prophylaxis:yes - Physical Examination Vital Signs and I&O: Last Vital Signs Temp 98.0 F 05/04/16 07:19 Pulse 78 05/04/16 07:59 Resp 18 05/04/16 07:19 BP 132/65 05/04/16 07:19 Pulse Ox 95 05/04/16 07:32 Oxygen Pulse Oxygen Saturation 95 O2 Device Nasal Cannula Oxygen Flow Rate 2 Fraction of Inspired Oxygen ( FIO2) Intake & Output 05/01/16 05/02/16 05/03/16 05/04/16 23:59 23:59 23:59 23:59 Intake Total 348 381 7071 1952 Output Total 1450 2050 2842 720 Balance -904 1400 1701 1232 Patient's weight 50.802 kg 50.757 kg 51.573 kg 52.571 kg General: Alert, Oriented x3, Cooperative, No acute distress, Well appearing Respiratory: Diminished Cardiovascular: Regular rate, Regular rate and rhythm, Normal S1, No Gallops, Rubs/Murmurs, Normal S2, Good Pedal Pulses (DP pulses 2+ bilaterally) GI: Normal bowel sounds, Soft, Non tender, No hepatospenomegaly, No masses Extremities/Musculoskeletal: Normal pulses Skin: Warm,Dry and Intact, No rashes, No breakdown, No significant lesion Neurological: Normal Steady Gait, Normal speech, Strength at 5/5 X4 ext, Cranial nerves 3-12 NL, Reflexes 2+ Psych/Mental Status: Normal Affect Result Diagrams: 05/04/16 03:10 05/04/16 03:10 Labs (last 24 hours): Laboratory Results - last 24 hr 05/04/16 05/04/16 03:10 03:10 WBC 6.3 RBC 4.19 L Hgb 12.1 Hct 36.7 MCV 88 MCH 28.8 MCHC 32.9 L RDW 15.2 H Plt Count 229 MPV 6.9 L Sodium 132 L Potassium 4.1 Chloride 103 Carbon Dioxide 25 Anion Gap 8 BUN 18 H Creatinine 0.70 Estimated GFR (MDRD) > 60 Glucose 85 Calculated Osmolality 256 L Calcium 8.2 L Lab/DI/Studies Reviewed: EKG: NSR, NO ST or ST wave changes noted Medications Lisinopril (Zestril) 5 mg PO DAILY [facility] Stop: 05/16/16 08:59 Last Admin: 05/02/16 09:08 Dose: 5 mg Oxycodone HCl (Oxycodone Immediate Release (Oxyir)) 5 mg PO Q4H PRN PRN Reason: Severe Pain Stop: 05/15/16 16:59 Levothyroxine Sodium (Synthroid, Levoxyl) 100 mcg PO DAILY DAI Stop: 05/16/16 08:59 Sodium Chloride ( 3% Nacl Neb) 15 ml NEB RTQ8 DAI Stop: 05/06/16 00:01 Last Admin: 05/04/16 00:15 Dose: 15 ml Acetaminophen (Tylenol Tablet) 650 mg PO Q6H PRN; Protocol PRN Reason: Mild Pain or Fever above 100.4 Stop: 05/15/16 16:59 Acetazolamide (Diamox) 500 mg PO MoWeFr@0900 [facility] Stop: 05/15/16 13:59 Last Admin: 05/01/16 14:25 Dose: 500 mg Albuterol/Ipratropium (Duoneb) 3 ml NEB RTQ6 [facility] Stop: 05/15/16 16:59 Last Admin: 05/02/16 13:22 Dose: 3 ml Alprazolam (Xanax) 0.5 mg PO TID [facility] Stop: 05/15/16 13:59 Last Admin: 05/02/16 14:31 Dose: 0.5 mg Azithromycin 500 mg/ Dextrose 250 mls @ 250 mls/hr IV Q24H [facility] Stop: 05/06/16 13:59 Last Admin: 05/02/16 14:31 Dose: 250 mls/hr Benzonatate (Tessalon) 200 mg PO Q8H PRN PRN Reason: Cough - [facility] Stop: 05/15/16 16:59 Ceftriaxone Sodium 1 gm/ (Dextrose) 100 mls @ 100 mls/hr IV Q24H [facility] Stop: 05/08/16 15:59 Last Admin: 05/01/16 16:58 Dose: 100 mls/hr Carvedilol (Coreg) 3.125 mg PO BID [facility] Stop: 05/15/16 20:59 Last Admin: 05/02/16 09:07 Dose: 3.125 mg Enoxaparin Sodium (Lovenox) 40 mg SQ Q24H [facility] Stop: 05/15/16 17:59 Last Admin: 05/01/16 16:59 Dose: 40 mg Pantoprazole Sodium (Protonix) 40 mg PO 0600 [facility] Stop: 05/16/16 05:59 Last Admin: 05/02/16 04:56 Dose: 40 mg Last Admin: 05/02/16 12:44 Dose: 100 mg Budesonide (Pulmicort) 0.5 mg NEB RTBID [facility] Stop: 05/15/16 19:59 Last Admin: 05/03/16 07:52 Dose: 0.5 mg Docusate Sodium (Colace) 100 mg PO BID [facility] Stop: 05/16/16 16:59 Lact Acid/Bifidobact/Lact [place]/Streptoc Th (July Q) 1 tab PO BIDLS [facility] Stop: 05/16/16 16:59 Last Admin: 05/02/16 17:11 Dose: 1 tab Zolpidem Tartrate (Ambien) 5 mg PO 2100,2200 PRN PRN Reason: Sleep or Insomnia Stop: 05/15/16 16:59 Last Admin: 05/03/16 02:08 Dose: 5 mg Tramadol HCl (Ultram) 100 mg PO Q6H PRN PRN Reason: MODERATE PAIN Stop: 05/15/16 12:16 Last Admin: 05/03/16 05:43 Dose: 100 mg Theophylline (Umer-Dur) 300 mg PO BID [facility] Stop: 05/16/16 16:59 Last Admin: 05/02/16 22:25 Dose: 300 mg Al Hydrox/Mg Hydrox/Simethicone (Maalox Plus, Mylanta) 30 ml PO Q3H PRN PRN Reason: Heartburn or Indigestion Stop: 05/15/16 16:59 Furosemide (Lasix) 20 mg PO DAILY [facility] Stop: 05/16/16 08:59 Last Admin: 05/04/16 08:55 Dose: 20 mg Methylprednisolone Sodium Succinate (Solu-Medrol) 20 mg IV Q8H [facility] Stop: 05/17/16 13:59 Last Admin: 05/04/16 05:51 Dose: 20 mg - Assessment/Plan (1) Community acquired pneumonia Acute J18.9 - PNEUMONIA, UNSPECIFIED ORGANISM Comment/Plan: Patient has been feeling somewhat better she was placed on 3% hypertonic saline nebulizers along with other nebulizers has been generally doing better. She has been on the current antibiotics with steroids I would change the steroids to prednisone 40 mg p.o. daily continue other supportive care patient has been allergic to Mucomyst nebulizers and therefore would avoid that. Would go ahead and get a chest x-ray in the morning prognosis is guarded would follow the patient closely (2) Hypoxia Acute R09.02 - HYPOXEMIA Comment/Plan: I would continue oxygen as needed (3) Acute exacerbation of chronic obstructive airways disease Acute J44.1 - CHRONIC OBSTRUCTIVE PULMONARY DISEASE W (ACUTE) EXACERBATION Comment/Plan: Cut down the steroids today to 40 mg prednisone p.o. daily continue supportive care with DVT and GI prophylaxis and nebulizers (4) COPD exacerbation Acute J44.1 - CHRONIC OBSTRUCTIVE PULMONARY DISEASE W (ACUTE) EXACERBATION Comment/Plan: Patient has been placed on theophylline at this time I think that Diamox can be discontinued I would continue supportive care for this patient (5) Anxiety Chronic F41.9 - ANXIETY DISORDER, UNSPECIFIED Comment/Plan: Continue supportive care
[2016-05-04] MEDS: Docusate Sodium 100 MG CAP PO SCH ×2 (08:53→21:20)
[2016-05-04] MEDS: CARVEDILOL 3.125 MG TAB PO SCH ×2 (08:54→21:20)
[2016-05-04] MEDS: ROFLUMILAST 500 MCG TAB PO SCH (08:54)
[2016-05-04] MEDS: FUROSEMIDE 20 MG TAB PO SCH (08:55)
[2016-05-04] MEDS: LEVOTHYROXINE 100 MCG (0.1 MG) TAB PO SCH (08:55)
[2016-05-04] MEDS: THEOPHYLLINE 300 MG PO SCH ×2 (08:55→21:20)
[2016-05-04] MEDS: MONTELUKAST SODIUM 10 MG TAB PO SCH (08:55)
[2016-05-04] MEDS: LISINOPRIL 5 MG TAB PO SCH (08:56)
[2016-05-04] MEDS ORDERED: BuPROPion 150 MG SR TAB PO SCH (09:00)
[2016-05-04] MEDS: TRAMADOL HCL 50 MG TAB PO PRN ×3 (09:06→23:01)
[2016-05-04] MEDS: PROBIOTIC BLEND TAB PO SCH ×2 (12:01→16:50)
[2016-05-04] MEDS: PEG-ELECTROLYTE 17 GM PACK PO SCH ×2 (12:01→16:50)
[2016-05-04] MEDS: NICOTINE 21 MG PATCH TOP SCH (13:37)
[2016-05-04] MEDS: AZITHROMYCIN 500 MG in D5W 250 ML IV SCH (13:38)
[2016-05-04] MEDS: ENOXAPARIN 40 MG/0.4 ML PFS SQ SCH (16:50)
[2016-05-04] MEDS: CEFTRIAXONE 1 GM in D5W 100 ML IV SCH (16:50)
[2016-05-04] MEDS: ROPINIROLE 1 MG TAB PO SCH (21:20)
[2016-05-04] MEDS: ATORVASTATIN 40 MG TAB PO SCH (21:20)
[2016-05-05] MEDS: Albuterol/Ipratropium Neb 3 ML NEB NEB SCH ×3 (00:34→15:13)
[2016-05-05] MEDS: SODIUM CHLORIDE NEB SCH ×2 (00:34→09:32)
[2016-05-05 03:28] LABS: BLOOD UREA NITROGEN 18 MG/DL (7-17); CALCIUM 8.3 MG/DL (8.4-10.2); CALCULATED OSMOLALITY 255 MOs/Kg (270-290); CHLORIDE 100 mEq/L (98-107); GLUCOSE 64 mg/dL (70-99); SODIUM LEVEL 132 mEq/L (137-146)
[2016-05-05 06:11] VITALS: BMI 20.9
[2016-05-05] MEDS: PANTOPRAZOLE 40 MG TAB PO SCH (06:28)
[2016-05-05] MEDS: TRAMADOL HCL 50 MG TAB PO PRN (06:28)
[2016-05-05] MEDS: ALPRAZOLAM 0.5 MG TAB PO SCH ×2 (06:28→14:21)
[2016-05-05] MEDS ORDERED: PREDNISONE 20 MG TAB PO SCH (08:00)
[2016-05-05] MEDS: BUDESONIDE 0.5 MG NEB NEB SCH (08:04)
[2016-05-05] MEDS: Docusate Sodium 100 MG CAP PO SCH (08:32)
[2016-05-05] MEDS: FUROSEMIDE 20 MG TAB PO SCH (08:33)
[2016-05-05] MEDS: MONTELUKAST SODIUM 10 MG TAB PO SCH (08:33)
[2016-05-05] MEDS: THEOPHYLLINE 300 MG PO SCH (08:33)
[2016-05-05] MEDS: CARVEDILOL 3.125 MG TAB PO SCH (08:33)
[2016-05-05] MEDS: LEVOTHYROXINE 100 MCG (0.1 MG) TAB PO SCH (08:33)
[2016-05-05] MEDS: ROFLUMILAST 500 MCG TAB PO SCH (08:33)
[2016-05-05 08:39] VITALS: PULSE 82
[2016-05-05] MEDS: PROBIOTIC BLEND TAB PO SCH (10:31)
[2016-05-05] MEDS: PEG-ELECTROLYTE 17 GM PACK PO SCH (10:31)
[2016-05-05] MEDS: LISINOPRIL 5 MG TAB PO SCH (10:31)
--- NOTE | 2016-05-05 11:31 | PCM.DCS92 ---
- Final/Secondary Discharge Diagnosis (1) Community acquired pneumonia Acute J18.9 - PNEUMONIA, UNSPECIFIED ORGANISM Present on Admission: Yes Comment: Zithromax Rocephin and probiotics ordered with streaky left basilar infiltrate noted. (2) Hyponatremia Acute E87.1 - HYPO-OSMOLALITY AND HYPONATREMIA Present on Admission: Yes Comment: Now improved is due to her pneumonia. IV fluids were given. (3) Acute respiratory failure Acute J96.00 - ACUTE RESPIRATORY FAILURE, UNSP W HYPOXIA OR HYPERCAPNIA Present on Admission: Yes hypoxia and hypercapnia J96.01 - Acute respiratory failure with hypoxia; J96.02 - Acute respiratory failure with hypercapnia Comment: Hypercarbia is being treated with theophylline and Diamox. Hopefully these measures will only be temporary. Says aubrey opens up her chest and feels like she is breathing better with it. (4) Hypothyroidism Chronic E03.9 - HYPOTHYROIDISM, UNSPECIFIED Present on Admission: Yes acquired E03.9 - Hypothyroidism, unspecified Comment: TSH>10 increased synthroid to 100mcg/day. (5) COPD exacerbation Acute J44.1 - CHRONIC OBSTRUCTIVE PULMONARY DISEASE W (ACUTE) EXACERBATION Present on Admission: Yes Comment: Nebulizers IV antibiotics and steroids are ordered for her acute COPD exacerbation and pneumonia. (6) Tobacco abuse Chronic Z72.0 - TOBACCO USE Present on Admission: Yes Comment: Stressed smoking cessation at length. She states that she is trying to quit x 2 months with minimal to no use over that period time. Discharge Disposition: Home Discharge Condition: Improved Cognitive Discharge Status: Unimpaired Fuctional Discharge Status: Independent Physician Follow up/Referrals: Naresh Motley MD [Staff Physician] - Hospital to call w/ appt. Canelo Stone Jr, DO [Primary Care Provider] - Hospital to call w/ appt. Home Medications / New Prescriptions: New Acetazolamide [Diamox] 500 mg PO MoWeFr@0900 #20 tablet Albuterol/Ipratropium Neb [Duoneb] 3 ml NEB RTQ6 #120 nebu BuPROPion (BID formulation) [Wellbutrin-Sr] 150 mg PO DAILY(ROWENA) #30 tab.sr.12h Levothyroxine [Synthroid, Levoxyl] 100 mcg PO DAILY #30 tablet Nicotine [Nicoderm] 21 mg TOP Q24H #30 pat Prednisone [Deltasone, Orasone] 40 mg PO DAILYWM #30 tablet Probiotic Blend [July Q] 1 tab PO BIDLS #20 tablet Theophylline [Umer-Dur] 300 mg PO BID #60 tablet Continue Albuterol Sulfate [Ventolin Hfa] 1 - 2 puff INH Q4H PRN PRN Reason: Shortness Of Breath Tramadol HCl [Ultram] 50 mg PO Q8H PRN PRN Reason: Pain Alprazolam [Xanax] 0.5 mg PO TID Budesonide/Formoterol Fumarate [Symbicort 160-4.5 Mcg Inhaler] 2 puff INH BID Aspirin (Enteric Coated) [Halfprin] 81 mg PO DAILY Omeprazole 20 mg PO DAILY Guaifenesin 400 mg PO Q12H PRN PRN Reason: Congestion Atorvastatin Calcium [Lipitor] 40 mg PO HS #30 tablet Carvedilol [Coreg] 3.125 mg PO BID #60 tablet Furosemide [Lasix] 20 mg PO DAILY #30 tablet Lisinopril 5 mg PO DAILY #90 tablet Montelukast Sodium [Singulair] 10 mg PO DAILY #30 tablet Roflumilast [Daliresp] 500 mcg PO DAILY #30 tablet Ropinirole HCl [Requip] 1 mg PO HS #30 tablet Changed Azithromycin 500 mg PO DAILY #3 tablet Discontinued Levothyroxine [Synthroid, Levoxyl] 75 mcg PO DAILY No Action Prednisone [Deltasone, Orasone] 10 mg PO .SEE COMMENTS Discharge Home Medication List Albuterol Sulfate [Ventolin Hfa] 1 - 2 puff INH Q4H PRN 10/27/13 [History Confirmed 05/01/16 Last Taken 04/30/16] Tramadol HCl [Ultram] 50 mg PO Q8H PRN 09/24/15 [History Confirmed 05/05/16 Last Taken 05/05/16 06:28] Alprazolam [Xanax] 0.5 mg PO TID 11/21/15 [History Confirmed 05/01/16 Last Taken 05/01/16] Aspirin (Enteric Coated) [Halfprin] 81 mg PO DAILY 05/01/16 [History Confirmed 05/05/16 Last Taken 05/05/16 08:33] Budesonide/Formoterol Fumarate [Symbicort 160-4.5 Mcg Inhaler] 2 puff INH BID [History Confirmed 05/01/16 Last Taken 04/30/16] Guaifenesin 400 mg PO Q12H PRN 05/01/16 [History Confirmed 05/01/16 Last Taken 04/30/16] Omeprazole 20 mg PO DAILY 05/01/16 [History Confirmed 05/01/16 Last Taken ] Prednisone [Deltasone, Orasone] 10 mg PO .SEE COMMENTS 05/01/16 [History Confirmed 05/05/16 Last Taken 05/05/16 08:32] Acetazolamide [Diamox] 500 mg PO MoWeFr@0900 #20 tablet 05/05/16 [Rx Confirmed 05/05/16 Last Taken 05/03/16 09:22] Albuterol/Ipratropium Neb [Duoneb] 3 ml NEB RTQ6 #120 nebu 05/05/16 [Rx Confirmed 05/05/16 Last Taken 05/05/16 07:58] Atorvastatin Calcium [Lipitor] 40 mg PO HS #30 tablet 05/05/16 [Rx Confirmed 08/14 Last Taken 05/04/16 21:20] Azithromycin 500 mg PO DAILY #3 tablet 05/05/16 [Rx Confirmed 05/05/16 Last Taken 05/04/16 13:38] BuPROPion (BID formulation) [Wellbutrin-Sr] 150 mg PO DAILY(ROWENA) #30 tab.sr.12h 05/05/16 [Rx Confirmed 05/05/16 Last Taken Unknown] Carvedilol [Coreg] 3.125 mg PO BID #60 tablet 05/05/16 [Rx Confirmed 05/05/16 Last Taken 05/05/16 08:33] Furosemide [Lasix] 20 mg PO DAILY #30 tablet 05/05/16 [Rx Confirmed 05/05/16 Last Taken 05/05/16 08:33] Levothyroxine [Synthroid, Levoxyl] 100 mcg PO DAILY #30 tablet 05/05/16 [Rx Confirmed 05/05/16 Last Taken 05/05/16 08:33] Lisinopril 5 mg PO DAILY #90 tablet 05/05/16 [Rx Confirmed 05/05/16 Last Taken 05/05/16 10:31] Montelukast Sodium [Singulair] 10 mg PO DAILY #30 tablet 05/05/16 [Rx Confirmed 05/05/16 Last Taken 05/05/16 08:33] Nicotine [Nicoderm] 21 mg TOP Q24H #30 pat 05/05/16 [Rx Confirmed 05/05/16 Last Taken 05/04/16 13:37] Prednisone [Deltasone, Orasone] 40 mg PO DAILYWM #30 tablet 05/05/16 [Rx Confirmed 05/05/16 Last Taken 05/05/16 08:32] Probiotic Blend [July Q] 1 tab PO BIDLS #20 tablet 05/05/16 [Rx Confirmed 05/05 Last Taken 05/05/16 10:31] Roflumilast [Daliresp] 500 mcg PO DAILY #30 tablet 05/05/16 [Rx Confirmed Last Taken 05/05/16 08:33] Ropinirole HCl [Requip] 1 mg PO HS #30 tablet 05/05/16 [Rx Confirmed 05/05/16 Last Taken 05/04/16 21:20] Theophylline [Umer-Dur] 300 mg PO BID #60 tablet 05/05/16 [Rx Confirmed Last Taken 05/05/16 08:33] 05/05/16 02:20 05/05/16 02:20 Laboratory Results - last 24 hr 05/05/16 05/05/16 05/05/16 02:20 02:20 11:17 WBC 7.9 RBC 4.25 Hgb 12.2 Hct 37.3 MCV 88 MCH 28.8 MCHC 32.8 L RDW 15.6 H Plt Count 235 MPV 7.0 L Sodium 132 L Potassium 3.7 Chloride 100 Carbon Dioxide 28 Anion Gap 8 BUN 18 H Creatinine 0.70 Estimated GFR (MDRD) > 60 Glucose 64 L POC Capillary Glucose 81 Calculated Osmolality 255 L Calcium 8.3 L O2 Device: Nasal Cannula Oxygen Flow Rate: 2 Oxygen to be used after Discharge: Continuous Diet at Discharge: Heart Healthy Activity: As Tolerated Discontinue use of:: All Types of Tobacco - DC Summary Notes HPI/Notes: Patient very pleasant 61-year-old white female patient of Dr. Motley & Chase who comes in the emergency room today complaining of cough productive of clear to yellowish sputum market increased shortness breath and failing outpatient antibiotics. Apparently she was seen by Dr. Motley 2 days ago given an injection as well as p.o. Zithromax and prednisone. She indicated that she has had no improvement in her symptoms and actually is getting much more short of breath. Her chest feels very tight and states that normally her temperature is 96.4 but has been running a fever up to 99 F. she also complains of nausea vomiting over the past 3-4 days but is not aware of having choked on her vomitus. She also states that she has quit smoking for the large part approximately 2 months ago using nicotine patch. She indicated that Chantix makes her walk in her sleep. Hospital Course Note:: Discharge summary on patient named FIORELLA MOSLEY admitted to [facility] on 05/01/16 by Charli Hassan MD. Date of discharge is 2016. She was noted to be hypercarbic on admission with the left lower lobe pneumonia. Supplemental O2 was given carefully and she was started on Diamox with theophylline. She indicated that she felt like the theophylline help open up her lungs and I advised her it was a respiratory stimulant. Her sodium dropped to 129 during hospitalization this was felt to be due to the pneumonia. It came back to near normal levels by the time of discharge. Reaching maximum medical improvement today she was ready go home. Supplemental O2 will be provided for her. Her TSH was greater than 10 and Synthroid dose was increased to 100 mcg a day. CC: Dr. Tolu Stone Total Time: 38 min Code: 16547 (>30min.) - Physical Exam Vital Signs: Last Vital Signs Temp 98.0 F 05/05/16 08:00 Pulse 82 05/05/16 08:00 Resp 18 05/05/16 08:00 BP 108/64 05/05/16 09:25 Pulse Ox 93 05/05/16 08:00 Oxygen Pulse Oxygen Saturation 93 O2 Device Nasal Cannula Oxygen Flow Rate 2 Fraction of Inspired Oxygen ( FIO2) Constitutional: Alert, Distress, Restless Oriented to: Time, Person, Place - HEENT Head: Normal (normocephalic, atraumatic.), Other (No cervical lymphadenopathy. No supraclavicular lymphadenopathy. Neck: No palpable mass, supple , trachea midline.) Eye: Normal (pupils equal, reactive to light, and round; EOMI, Sclera white) Oropharynx: Normal (Pharynx: Moist without exudate,Gums-no swelling, No oropharyngeal lesions or erythema, Mucous membranes are dry.) ENT EAC: Normal (No oropharyngeal lesions or erythema. Mucous membranes are dry. ) TMJ: Normal Nose: No Symptoms Reported (septum midline, Nares patent, without discharge or bleeding.) - Respiratory/Cardiovascular Respiratory: Accessory Muscle Use, Diminished. negative: Rales, Rhonchi, Stridor, Tachypnea, Wheezes Cardiovascular: Normal (RRR , Normal S1, S2. No murmurs, rubs, or gallops. PMI non-displaced. Carotids: no carotid bruits. No bradycardia or tachycardia. DP pulses 2+ bilaterally.) - GI Auscultation: Normal (normal active sounds) Palpation: Normal (Soft,non distended,nontender. No hepatosplenomegaly.) Tenderness: Non tender (No rebound or guarding) Pichardo's Sign: Negative - Musculoskeletal Back: Normal (Non-Tender) Extremities: Edema (Trace). negative: Clubbing, Cyanosis - Integumentary Skin: Normal (Warm dry no rashes) Lymphatics: Normal (No cervical lymphadenopathy. No supraclavicular lymphadenopathy.) - Neurologic Memory Impaired: Normal Motor Function: Normal (Motor 5/5 throughout.Normal tone, Pulses 2+ No cyanosis or edema, FROM) Cranial Nerve: Normal (CN II-XII intact sensation, strength 5/5) Cerebellar: Normal. negative: Ataxia, Past-Pointing, Tremor Mood Description: Anxious Thought: Coherent Perception: Normal (Normal and appropriate affect.)
[2016-05-05 12:17] VITALS: BP 104/60; TEMP 98.1
[2016-05-05] MEDS ORDERED: SODIUM CHLORIDE NEB SCH (14:00)
[2016-05-05] MEDS: NICOTINE 21 MG PATCH TOP SCH (14:21)
[2016-05-05] MEDS: AZITHROMYCIN 500 MG in D5W 250 ML IV SCH (14:22)
== END 2016-05-05 15:25 | disposition home or self-care (01) | DRG 193 ==
LOC: ED 09:48 → PCU 12:10
PROVIDERS: ADMIT Internal Medicine; ATTEND Internal Medicine
PROC: 4A033R1 Measurement of Arterial Saturation, Peripheral, Percutaneous Approach (ICD-10-PCS; principal; 2016-05-01)
DX: J18.9 Pneumonia, unspecified organism (principal); J96.22 Acute and chronic respiratory failure with hypercapnia; J96.21 Acute and chronic respiratory failure with hypoxia; I11.0 Hypertensive heart disease with heart failure; I50.9 Heart failure, unspecified; E87.1 Hypo-osmolality and hyponatremia; J44.1 Chronic obstructive pulmonary disease with (acute) exacerbation; E03.9 Hypothyroidism, unspecified; J45.909 Unspecified asthma, uncomplicated; K21.9 Gastro-esophageal reflux disease without esophagitis; M19.90 Unspecified osteoarthritis, unspecified site; F32.9 Major depressive disorder, single episode, unspecified; F41.9 Anxiety disorder, unspecified; Z90.49 Acquired absence of other specified parts of digestive tract; Z87.440 Personal history of urinary (tract) infections; Z86.010 Personal history of colon polyps; Z88.1 Allergy status to other antibiotic agents; Z79.82 Long term (current) use of aspirin; Z72.0 Tobacco use
CPT/HCPCS: 36415; 36600; 71010; 71020; 80048; 80053; 81001; 82803; 82962; 83605; 83880; 84443; 84484; 85025; 85027; 85610; 85730; 87040; 87070; 87086; 87205; 93005; 94640; 96365; 96366; 96372; 96375; 97162; 98960; 99284; G0237; J0456; J0692; J0696; J1650; J2543; J2920; J2930; J3490; J7040; J7060; J7070; J7131; J7620